=== PATIENT | female | born 1965 | race Caucasian/White ===

== ENCOUNTER 2024-07-20 05:41 | Inpatient (IN) | payer MEDICAID, SELFPAY ==
[2024-07-20] VITALS (143 sets, daily range): BP systolic 74–185; BP diastolic 46–92; PULSE 86–132; RESP 15–40; TEMP 36.2–37.1; O2SAT 60–100; BMI 19.5
--- NOTE | 2024-07-20 05:49 | XRR_ITS ---
PROCEDURE INFORMATION: Exam: XR Chest Exam date and time: 07/20/2024 6:22 AM Age: 59 years old Clinical indication: Shortness of breath; Patient HX: SOB with hypoxia. TECHNIQUE: Imaging protocol: Radiologic exam of the chest. Views: 1 view. COMPARISON: No relevant prior studies available. FINDINGS: Lungs: Perihilar infiltrate is noted on the left. Opacity is noted involving the right mid and lower lung field. Findings may reflect layering pleural fluid, atelectasis, pneumonia or a combination. Pleural spaces: Suspect component of pleural fluid on the right. No pneumothorax is appreciated. Heart/Mediastinum: Unremarkable. No cardiomegaly. Bones/joints: Unremarkable. XR/XR chest 1V portable [id number] IMPRESSION: 1. Perihilar infiltrate on the left. This could be related to pulmonary edema or could be inflammatory in origin. 2. Right perihilar and basilar opacity.
--- NOTE | 2024-07-20 05:53 | ED_ITS ---
HPI - SOB/Dyspnea 2 General: Chief Complaint: Shortness of Breath/Dyspnea Stated Complaint: Weakness,SOB Time Seen by Provider: 07/20/24 05:48 History of Present Illness: HPI Narrative: 59-year-old female presents emergency ro om via EMS complaining of shortness of breath. On arrival she is tachycardic and hypoxic. She was placed on 6 L by nasal cannula. She is awake and alert. She is quite anxious he complains of pain everywhere she does states she has vomited once has not had any diarrhea has had a minimally productive cough no chest pain. Associated symptoms: Reports abdominal pain, nausea and vomiting; Deny chest pain or fever(s) Related Data Home Medications Medication Instructions Recorded Confirmed aspirin 325 mg tablet 325 mg PO DAILY 07/20/24 07/20/24 multivitamin 1 tab PO DAILY 07/20/24 07/20/24 Allergies Allergy/AdvReac Type Severity Reaction Status Date / Time Sulfa (Sulfonamide Allergy ALGY-Rash Verified 07/20/24 05:48 Antibiotics) Review of Systems 2 Const: Denies: fever(s) or chills Card: Denies: chest pain Resp: Reports: dyspnea, productive cough and wheezing GI: Reports: abdominal pain, nausea and vomiting : Denies: dysuria, urinary frequency or urinary urgency Musc: Denies: neck pain or back pain Skin/Breast: Denies: rash PFSH ED 2 PFSH: Medical History Alopecia Family history of breast cancer mother Rheumatoid arthritis diagnosis as per available history Psoriasis diagnosis per available history Former smoker Surgical History (Updated 07/20/24 @ 14:32 by Angelina Dean MD) History of hysterectomy Family History (Updated 07/20/24 @ 14:33 by Angelina Dean MD) Mother Breast cancer Father Congestive heart failure (CHF) Sister Rheumatoid arthritis Social History (Updated 07/20/24 @ 14:34 by Angelina Dean MD) Smoking and tobacco/nicotine status: former use of tobacco/nicotine Quit status (tobacco/nicotine): has quit using Year quit tobacco: 2022 Alcohol intake: never Substance/Drug Use: never Household members: spouse and other Details: dog Marital status: Physical Exam 2 Const: GENERAL APPEARANCE: cooperative ORIENTATION/CONSCIOUSNESS: Yes awake, Yes oriented to person, Yes oriented to place and Yes oriented to time HENMT: COMMON NORMALS: normocephalic, atraumatic and hearing grossly normal bilaterally HEAD & SCALP: normocephalic and atraumatic Resp: COMMON NORMALS: normal respiratory effort, No retractions and No use of accessory muscles EFFORT & INSPECTION: Yes tachypneic AUSCULTATION: w heezes Cardio: COMMON NORMALS: No murmurs present (Cardio) RATE: tachycardic R HYTHM: abnormal rhythm irregularly irregular GI: COMMON NORMALS: No hepatosplenomegaly present AUSCULTATION: Yes normoactive bowel sounds PALPATION: Yes Tenderness to palpation present (GI), No Guarding due to palpation present (GI) and Yes No hepatosplenomegaly present Extremity: COMMON NORMALS: normal to inspection, capillary refill normal, no clubbing, cyanosis or edema, no calf tenderness and no pedal edema Neuro: SENSORIUM/ORIENTATION: Yes oriented to person, Yes oriented to place and Yes oriented to time Skin: COMMON NORMALS: no rashes or lesions noted GENERAL SKIN EXAM: no rashes or lesions noted Procedures Central Line Placement Right IJ: Patient Placed on Monitor/Pulse Ox: Yes MD Prep: mask, gown and gloves Central Line Prep: Chlorhexidine scrub Local Anesthetic: lidocaine 1% Amount of anesthesia used (mL): 3 Ultrasound Used for Placement: Yes Central Line Lumen Inserted: triple Post Procedure: sutured in place, good blood return, all ports aspirated, flushed, capped and sterile dressing applied Post Procedure X-Ray: tip of catheter in good position and no pneumothorax seen Patient Tolerated Procedure: well and no complications Complications: none Course 2 Vital Signs: Vital signs: Vital Signs Temperature 97.9 F 07/21/24 04:40 Pulse Rate 78 07/21/24 05:49 Respiratory Rate 20 H 07/21/24 05:45 Blood Pressure 107/72 07/21/24 05:45 Pulse Oximetry 98 07/21/24 05:40 Oxygen Delivery Me thod Nasal Cannula 07/20/24 18:16 Oxygen Flow Rate 5 07/20/24 18:16 MDM - SOB/Dyspnea Medical Decision Making Patient presents to the emergency room cachectic appears septic she is tachycardic and hypotensive and hypoxic. Despite fluid bolus patient did not improve. She is started on IV antibiotics for interval to manage IV is a difficult access ultimately a central line was placed Levophed was started. Chest x-ray shows significant pneumonia CTA requested shows significant lymphadenopathy but no PE use question of some narrowing of both bronchi noted when I reviewed the films myself. Patient has been started on IV antibiotics treat for sepsis will admit to ICU. Discussed with hospitalist orders written Lab Data I reviewed the patient's lab results. 07/21/24 04:54 07/21/24 04:54 Labs/Radiology: Radiology Impressions Chest CTA 07/20/24 06:38 IMPRESSION: 1. Consolidation of the entire right lower lobe with consolidation involving a large portion of the left lower lobe. Findings likely related to pneumonia. 2. Somewhat smaller nodular airspace opacities involving the upper lobes bilaterally. An inflammatory cause is favored. However, recommend follow-up to document resolution 3. Enlarged mediastinal and hilar lymph nodes. Again, findings are most likely reactive. Recommend follow-up to document resolution. Chest X-Ray 07/20/24 08:01 IMPRESSION: Properly positioned right internal jugular central line. Abnormalities in both hemithoraces as above. Chest CT is to follow. Laboratory Results WBC 17.23 10^3/uL (3.29-11.43) H 07/20/24 07:16 RBC 4.46 10^6/uL (3.85-5.65) 07/20/24 07:16 Hgb 12.50 g/dL (11.27-16.99) 07/20/24 07:16 Hct 36.6 % (36-47) 07/20/24 07:16 MCV 82.1 fl (85-98) L 07/20/24 07:16 MCH 28.0 pg (27-33) 07/20/24 07:16 MCHC 34.2 g/dL (30-55) 07/20/24 07:16 RDW 14.3 % (12.1-15.1) 07/20/24 07:16 Plt Count 412 10^3/cmm (157-399) H 07/20/24 07:16 MPV 10.3 fL (7.4-10.4) 07/20/24 07:16 Neut % (Auto) 95.6 % 07/20/24 07:16 Lymph % (Auto) 1.7 % 07/20/24 07:16 [place] % (Auto) 1.0 % 07/20/24 07:16 Eos % (Auto) 0.1 % 07/20/24 07:16 Baso % (Auto) 0.8 % 07/20/24 07:16 Neut # (Auto) 16.49 10^3/uL (1.8-7.7) H 07/20/24 07:16 Lymph # (Auto) 0.3 10^3/uL (0.8-4.8) L 07/20/24 07:16 [place] # (Auto) 0.2 10^3/uL (0.2-0.9) 07/20/24 07:16 Eos # (Auto) 0.0 10^3/uL (0.0-0.8) 07/20/24 07:16 Baso # (Auto) 0.1 10^3/uL (0.0-0.1) 07/20/24 07:16 Nucleated RBC % (auto) 0 % 07/20/24 07:16 Nucleated RBCs # 0.0 /100WBC 07/20/24 07:16 Specimen Type Arterial 07/20/24 05:52 Sample Site Radial, right 07/20/24 05:52 ABG pH 7.46 (7.35-7.45) H 07/20/24 05:52 ABG pCO2 35.1 mmHg (35-45) 07/20/24 05:52 ABG pO2 54.0 mmHg (80.0-100.0) L 07/20/24 05:52 ABG HCO3 24.9 mmol/L (22-26) 07/20/24 05:52 ABG O2 Saturation 89.3 07/20/24 05:52 ABG Base Excess 1.3 mmol/L (-2.0-2.0) 07/20/24 05:52 Michael Test Pos 07/20/24 05:52 A-a O2 Gradient 6.9 mmHg (5-10) 07/20/24 05:52 Hematocrit 40.3 % (37-47) 07/20/24 05:52 Hgb O2 Saturation 87.4 % (95-100) L 07/20/24 05:52 Carboxyhemoglobin 1.2 %THgb (0.4-20.1) 07/20/24 05:52 Methemoglobin 0.9 % (0.4-1.5) 07/20/24 05:52 Total Hemoglobin 13.2 g/dL (12-16) 07/20/24 05:52 Sodium 131.0 mmol/L (131-143) 07/20/24 05:52 Potassium 3.6 mmol/L (3.5-5.0) 07/20/24 05:52 Glucose 108.0 mg/dL (70-115) 07/20/24 05:52 Ionized Calcium 1.1 mmol/L (1.1-1.4) 07/20/24 05:52 O2 Delivery Device Nc 07/20/24 05:52 O2 Liters/Min 6.0 % 07/20/24 05:52 Line Dancer ID [email or web address] 07/20/24 05:52 Sodium 128 mmol/L (136-145) L 07/20/24 07:16 Potassium 3.8 mmol/L (3.5-5.1) 07/20/24 07:16 Chloride 92 mmol/L (98-107) L 07/20/24 07:16 Carbon Dioxide 24 mmol/L (22-29) 07/20/24 07:16 Anion Gap 15.8 (5-19) 07/20/24 07:16 BUN 43 mg/dL (6-20) H 07/20/24 07:16 Creatinine 0.8 mg/dL (0.5-0.9) 07/20/24 07:16 GFR Calculation 73.9 mL/min (90-130) L 07/20/24 07:16 Glucose 113 mg/dL (65-115) 07/20/24 07:16 Calculated Osmolality 278 mOsm/kg (285-295) L 07/20/24 07:16 Lactic Acid 2.9 mmol/L (0.5-2.2) H 07/20/24 07:16 Lactic Acid (Sepsis) 2.1 mmol/L (0.5-2.2) 07/20/24 09:55 Calcium 7.3 mg/dL (8.5-10.5) L 07/20/24 07:16 Magnesium 2.4 mg/dL (1.7-2.3) H 07/20/24 07:16 Total Bilirubin 1.0 mg/dL (0.15-1.2) 07/20/24 07:16 AST 66 U/L (0-32) H 07/20/24 07:16 ALT 26 U/L (0-33) 07/20/24 07:16 Alkaline Phosphatase 82 U/L (35-105) 07/20/24 07:16 Troponin T Baseline 8 ng/L (0-10) 07/20/24 07:16 Troponin T 120 Minute 6.00 ng/L (0-10) 07/20/24 09:55 Delta Troponin T -2.00 ABS# (0-10) L 07/20/24 09:55 Troponin T Hi Sens 6Hr 6.00 ng/L (0-10) 07/20/24 12:49 Troponin T Hi Sens 6Hr Delta -2.00 ng/L (0-12) L 07/20/24 12:49 NT-Pro-B Natriuret Pep 2712 pg/mL (0-125) H 07/20/24 07:16 Total Protein 4.7 g/dL (6.6-8.7) L 07/20/24 07:16 Albumin 2.2 g/dL (3.5-5.2) L 07/20/24 07:16 Globulin 2.5 g/dL (1.3-4.6) 07/20/24 07:16 All radiology interpretation(s) finalized by discharge Discharge Plan Discharge Patient Disposition: Admitted As Inpatient Admit Provider: Angelina Dean Clinical Impression: Community acquired pneumonia, Severe sepsis, Body mass index (BMI) less than or equal to 19 in adult, Severe protein-calorie malnutrition, Rheumatoid arthritis Condition: Stable Coding Level of Care Code ED Speech Lang Path for Adrienne Elizalde
[2024-07-20 06:03] LABS: ABG PCO2 35.1 mmHg (35-45); ABG PH Result 7.46 (7.35-7.45); Alveolar-Arterial Oxygen Gradi 6.9 mmHg (5-10); Arterial Blood Gas Hematocrit 40.3 % (37-47); Base Excess ABG 1.3 mmol/L (-2.0-2.0); Blood Gas Allen Test Pos; Blood Gas Sample Site Radial, right; Blood Gas Sample Type Arterial; Carboxyhemoglobin 1.2 %THgb (0.4-20.1); HCO3 ABG 24.9 mmol/L (22-26); HGB O2 Sat 87.4 % (95-100); Ionized Calcium Level - ABG 1.1 mmol/L (1.1-1.4); Methemoglobin 0.9 % (0.4-1.5); Oxygen Device NC; Oxygen Saturation ABG 89.3; Potassium Level - ABG 3.6 mmol/L (3.5-5.0); Total Hemoglobin 13.2 g/dL (12-16)
--- NOTE | 2024-07-20 06:13 | ECG_ITS ---
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 Measurements Intervals [place] Rate: 119 P: 18 HI: 150 QRS: 63 QRSD: 93 T: 57 QT: 276 QTc: 389 Interpretive Statements SINUS TACHYCARDIA WITH OCCASIONAL VENTRICULAR PREMATURE COMPLEXES ABNORMAL RHYTHM ECG No previous ECG available for comparison Electronically Signed On 07-21-2024 01:20:03 CDT by Michelle Falk M.D. [id number]
--- NOTE | 2024-07-20 06:38 | CTR_ITS ---
PROCEDURE INFORMATION: Exam: CTA Chest With Contrast Exam date and time: 07/20/2024 10:14 AM Age: 59 years old Clinical indication: Condition or disease; Lung condition and disease; Pleural effusion; Other: Not specified TECHNIQUE: Imaging protocol: Computed tomographic angiography of the chest with contrast. Exam focused on the arteries. 3D rendering (Not supervised by radiologist): MIP and/or 3D reconstructed images were created by the technologist. Radiation optimization: All CT scans at this facility use at least one of these dose optimization techniques: automated exposure control; mA and/or kV adjustment per patient size (includes targeted exams where dose is matched to clinical indication); or iterative reconstruction. Contrast material: OMNI 350; Contrast volume: 49 ml; Contrast route: INTRAVENOUS (IV); COMPARISON: CR XR chest 1V portable [id number] 07/20/2024 7:35 AM RADIATION DOSE METRICS: Total DLP (mGy-cm): 137.46 FINDINGS: Tubes, catheters and devices: There is a central venous catheter with its tip at the SVC/right atrial junction. Pulmonary arteries: Normal. No pulmonary emboli. Aorta: Unremarkable. No aortic aneurysm. No aortic dissection. Lungs: There is bilateral lower lobe consolidation worse on the right than on the left. Smaller somewhat nodular airspace opacities are noted involving the upper lobes bilaterally. Pleural spaces: Unremarkable. No pneumothorax. No pleural effusion. Heart: Unremarkable. No cardiomegaly. No pericardial effusion. Lymph nodes: There are enlarged mediastinal and hilar lymph nodes bilaterally. No enlarged axillary lymph nodes are appreciated. Bones/joints: Unremarkable. No acute fracture. Soft tissues: Unremarkable. CT/CT angio chest PE protcl [id number] IMPRESSION: 1. Consolidation of the entire right lower lobe with consolidation involving a large portion of the left lower lobe. Findings likely related to pneumonia. 2. Somewhat smaller nodular airspace opacities involving the upper lobes bilaterally. An inflammatory cause is favored. However, recommend follow-up to document resolution 3. Enlarged mediastinal and hilar lymph nodes. Again, findings are most likely reactive. Recommend follow-up to document resolution.
[2024-07-20 07:29] LABS: Basophils # 0.1 10^3/uL (0.0-0.1); Basophils % 0.8 %; Eosinophils % 0.1 %; Hematocrit 36.6 % (36-47); Lymphocytes # 0.3 10^3/uL (0.8-4.8); Lymphocytes % 1.7 %; Mean Corpuscular HGB Conc 34.2 g/dL (30-55); Mean Corpuscular Volume 82.1 fl (85-98); Mean Platelet Volume 10.3 fL (7.4-10.4); Monocytes # 0.2 10^3/uL (0.2-0.9); Neutrophils # 16.49 10^3/uL (1.8-7.7); Neutrophils % 95.6 %; Nucleated Red Blood Cells % 0 %; Platelet Count 412 10^3/cmm (157-399); Red Blood Count 4.46 10^6/uL (3.85-5.65); Red Cell Distribution Width 14.3 % (12.1-15.1); White Blood Count 17.23 10^3/uL (3.29-11.43)
[2024-07-20] MEDS: sodium chloride 0.9% 1,360.77 ML 1360.77 ML IV (07:37)
[2024-07-20] MEDS: methylPREDNISolone sod succ 125 mg/2 mL INJ IVP (07:37)
[2024-07-20 07:45] LABS: Lactic Sepsis W/Reflex 2.9 mmol/L (0.5-2.2)
[2024-07-20 07:47] LABS: Troponin(5th) Baseline 8 ng/L (0-10)
--- NOTE | 2024-07-20 07:52 | ECG_ITS ---
[facility] Test Date: 2024-07-20 Pat Name: Brittany Roy Department: Room: Gender: Female Headhunter: : 1965 Requested By: Dyllan Chaparro Order Number: [id number] Omkar MD: Michelle Falk M.D. Measurements Intervals [place] Rate: 118 P: 57 NM: 154 QRS: 63 QRSD: 87 T: 66 QT: 276 QTc: 388 Interpretive Statements SINUS TACHYCARDIA ABNORMAL RHYTHM ECG Compared to ECG 07/20/2024 06:13:57 Ventricular premature complex(es) no longer present Electronically Signed On 07-21-2024 01:27:12 CDT by Michelle Falk M.D. [email or web address]
[2024-07-20 07:55] LABS: Alanine Aminotransferase 26 U/L (0-33); Albumin Level 2.2 g/dL (3.5-5.2); Alkaline Phosphatase 82 U/L (35-105); Anion Gap 15.8 (5-19); Aspartate Amino Transferase 66 U/L (0-32); Blood Urea Nitrogen 43 mg/dL (6-20); Calcium 7.3 mg/dL (8.5-10.5); Carbon Dioxide 24 mmol/L (22-29); Chloride 92 mmol/L (98-107); Creatinine Clr Calc Pharmacy 55.6605; Globulin 2.5 g/dL (1.3-4.6); Glomerular Filtration Rate 73.9 mL/min (90-130); Glucose 113 mg/dL (65-115); Magnesium 2.4 mg/dL (1.7-2.3); NT Pro B Type Natriuretic Pept 2712 pg/mL (0-125); Osmolality Calculated 278 mOsm/kg (285-295); Potassium 3.8 mmol/L (3.5-5.1); Sodium 128 mmol/L (136-145); Total Protein 4.7 g/dL (6.6-8.7)
--- NOTE | 2024-07-20 08:01 | XR_ITS ---
WS: [id number] XR chest 1V portable [id number] REASON FOR EXAM: CENTRAL LINE PLACEMENT FINDINGS: Right internal jugular central venous line placement. The tip is in the distal SVC. The heart is not enlarged. Reticular interstitial and groundglass opacity in the left perihilar region and likely the right alex hilar region. Areas of atelectasis in both lower lung alvarez. Airspace consolidation in the right low er lung with air bronchograms. No change in these abnormalities compared to the examination of jane li AM. XR/XR chest 1V portable [id number] IMPRESSION: Properly positioned right internal jugular central line. Abnormalities in both hemithoraces as above. Chest CT is to follow.
[2024-07-20 08:48] LABS: Slide Review Slide Review Perform
[2024-07-20] MEDS: azithromycin 500 MG in sodium chloride 0.9% 250 ML 250 MG IV (08:49)
[2024-07-20] MEDS: cefTRIAXone 1,000 mg SDV 1000 MG IVP (08:57)
[2024-07-20 09:11] LABS: Reflex Lactate Order REFLEX LACTIC ORDERD
[2024-07-20] MEDS: ondansetron 2 mg/ML SDV 2 mL 4 MG IVP (09:24)
[2024-07-20] MEDS: iohexol 350 mg/mL 500 mL Btl (per mL) IV (10:19)
[2024-07-20 10:24] LABS: Lactic Acid level (Lactate) 2.1 mmol/L (0.5-2.2)
[2024-07-20] MEDS: norepinephrine 4 MG/250 ML BAG 7.5 MG IV (10:36)
[2024-07-20] MEDS: lanolin oint 7 gm 1 APPLIC TOPICAL (11:32)
--- NOTE | 2024-07-20 12:31 | P.HP_ITS ---
Providers/Chief Complaint 2 Admitting Physician: Angelina Dean MD Primary Care Provider: Between providers Chief Complaint: Weakness,SOB History of Present Illness Brittany Roy is a 59 year old female who presents to the emergency room with chief complaint of not feeling well. She has been sick for about a week. First thing she noted was a high fever up to around 102 degrees. She also felt weak and tired. She thought she was coming down with the plague . She said she felt terrible. She had headache, aching all over. Eyes have been crusting over and sore. No vision changes. No photophobia. No neck stiffness. She has been generally weak and not had much appetite. No nausea or vomiting. No change in bowel function. She has been trying to take an oral intake but has noted decreased urine output. Some dysuria. No blood in her stools or blood in her urine. No other signs of bleeding. She has been very short of breath. She has had runny nose but no sore throat, difficulty swallowing. No cough to speak of but at times is felt like she needed to cough. No hemoptysis. She has not been able to take care of herself. Today things seem to get worse prompting her to finally come in to be seen. She is in between doctors and has not seen a primary care provider recently. Most of her prior care has been at [facility]. She was hospitalized there earlier in the year and as well as around August last year. She reports a history of E. coli infections in the past associated with an infection in the bowels. She has had prior episodes of pneumonia but does not recall exactly when the last time was. No hospitalizations within the last few months. She carries a diagnosis of rheumatoid arthritis and psoriasis. She also has alopecia. She is not on any treatment for any of these currently by mouth, infusions or topically. She only takes aspirin and a multivitamin. She has lost some weight over the past year, 5 to 10 pounds. She is not up on her preventative care. She has a family history of breast cancer in her mother and heart failure in her father. She has had mammograms in the past with nothing being found. Does do self breast exams. Found a transient lump in her right axillary area that later went away. No known history of heart problems, lung disease, kidney disease. No known sick contacts. She has not had a flu shot this year. Has had a pneumonia shot within the last 5 years. In the emergency room she was found to have consolidation in both lungs, right more so than left as well as some enlarged lymph nodes. White count was 17,000. She had a left shift but also noted to have lymphopenia. She was tachycardic and hypotensive on arrival. Initial lactic acid 2.9. She received 30 cc/kg fluid bolus with persistent hypotension and was ultimately started on Levophed which is currently running at 2. Heart rate has improved as has blood pressure and most recent lactic acid was down to 2.1. She received Rocephin and azithromycin empirically. Blood cultures were collected. Notable laboratory findings include low sodium and chloride, elevated BUN, low MCV, elevated AST and hypoalbuminemia. BMI 19. She is being admitted to the ICU. History is obtained from Mrs. Roy and external records have been requested. Review of Systems 2 General: Reports: Other (ROS as per HPI or as otherwise noted here) Medications/Allergies Home Medications Medication Instructions Recorded Confirmed Last Taken Type aspirin 325 mg tablet 325 mg PO DAILY 07/20/24 07/20/24 Unknown History multivitamin 1 tab PO DAILY 07/20/24 07/20/24 Unknown History Allergies Allergy/AdvReac Type Severity Reaction Status Date / Time Sulfa (Sulfonamide Allergy ALGY-Rash Verified 07/20/24 05:48 Antibiotics) PFSH Acute 2 PFSH: Medical History Alopecia Family history of breast cancer mother Rheumatoid arthritis diagnosis as per available history Psoriasis diagnosis per available history Former smoker Surgical History (Updated 07/20/24 @ 14:32 by Angelina Dean MD) History of hysterectomy Family History (Updated 07/20/24 @ 14:33 by Angelina Dean MD) Mother Breast cancer Father Congestive heart failure (CHF) Sister Rheumatoid arthritis Social History (Updated 07/20/24 @ 14:34 by Angelina Dean MD) Smoking and tobacco/nicotine status: former use of tobacco/nicotine Quit status (tobacco/nicotine): has quit using Year quit tobacco: 2022 Alcohol intake: never Substance/Drug Use: never Household members: spouse and other Details: dog Marital status: Female Reproductive History: : 1 Para: 0 Vitals/I&O/Wt Last Vital Signs Temp 98.5 F 07/20/24 05:44 Pulse 100 07/20/24 10:50 Resp 31 H 07/20/24 10:50 BP 77/52 07/20/24 10:50 Pulse Ox 95 07/20/24 10:50 O2 Del Method Nasal Cannula 07/20/24 10:30 O2 Flow Rate 6 07/20/24 10:30 07/19/24 07/20/24 07/20/24 22:59 06:59 14:59 Intake Total 1613.645 / 1613.645 Balance 1613.645 / 1613.645 Weight last 48 hrs Weight 45.359 kg Physical Exam 2 Narrative: Patient is sleepy but arousable. Answers questions but slow to formulate responses. Overall thin build, looks older than stated age. Bitemporal wasting is noted. Alopecia noted involving the frontal region to mid parietal area. Thick curly black hair is growing in behind this. Skin where hair exists scalp is scaly. Loss of eyebrows is noted with the exception of some hair growing in on the left lateral eyebrow. There are some scaling plaques in the region of both eyebrows as well. Does have eyelashes. There is matting of both eyes with crusty brown material. Conjunctiva are erythematous. Pupils are equally reactive to light. No photophobia. Nasopharynx is clear. Oropharynx is very dry. Edentulous. Lips are dry. Neck is supple. Lungs are remarkable for decreased breath sounds bilaterally. Scattered crackles. Mild supraclavicular retractions noted. Pauses with talking frequently to take in a deep breath. Cardiovascular exam reveals a tachycardic but regular rhythm, heart sounds are slightly distant. Abdomen is soft, mild diffuse tenderness without any localizing. No guarding or rebound. Positive bowel sounds. No pitting edema noted to the lower extremities. Sausage digits noted to both hands. No effusions noted to elbows, hands, feet, knees. Overall skin is dry with some tenting noted. There are some erythematous patches on extensor surfaces but no scaly plaques. On the lower extremities there are sores in different stages of healing that look like bug bites. No mottling is appreciated. Capillary refill is prolonged. Speech is quiet but clear. Face is symmetric. Moves all extremities though generally weak. No abnormal movements. Quick SOFA Score: Respiratory Rate: 15 Blood Pressure: 88/58 Junior Coma Scale: 15 qSOFA Score: 1 If qSOFA score 2 or greater, continue: PaO2/FiO2 Ratio (mmHg): 200 Blood Pressure Mean: 68 Norepinephrine Current Rate (?g/kg/min): 2 Bilirubin (mg/dl): 1.0 Platelets (x10?/ml): 412 Creatinine (mg/dl): 0.8 SOFA Score: 6 Evaluation: Current stage of sepsis: severe sepsis Sepsis stage criteria used: [facility] Sep-1 and Sepsis-3 Crystalloid fluids: 30 mL/kg crystalloid fluids ordered and initiated within 3 hours Blood cultures ordered: Yes Possible source: pulmonary Focused Exam: Vital signs: Temp Pulse Resp BP Pulse Ox O2 Del Method O2 Flow Rate 07/20/24 13:00 93 23 H 79/53 07/20/24 12:50 93 24 H 91/67 96 07/20/24 12:40 93 24 H 93/61 07/20/24 12:30 96 28 H 89/57 95 07/20/24 12:20 92 26 H 90/58 07/20/24 12:10 93 27 H 95/65 07/20/24 12:00 96 27 H 87/60 96 07/20/24 11:50 94 26 H 92/59 07/20/24 11:40 98 27 H 93/59 94 07/20/24 11:30 95 28 H 81/65 96 07/20/24 11:20 92 28 H 88/60 07/20/24 11:10 97 35 H 84/55 07/20/24 11:00 95 31 H 79/51 95 07/20/24 10:50 100 31 H 77/52 95 07/20/24 10:40 107 H 30 H 74/46 96 07/20/24 10:35 107 H 33 H 90 07/20/24 10:30 106 H 15 75/47 95 Nasal Cannula 6 Respiratory exam: crackles present, diminished lung sounds and uses accessory muscles (supraclavicular retractions) Cardiovascular exam: regular rate and tachycardia Capillary refill: > 3 Seconds Peripheral pulse strength: 1+ Faint Peripheral pulse location: Pedal Skin exam: pallor noted and other (dry crusty eyes, dry oropharymnx); abnormal turgor (decreased), rashes/lesions noted (sores healing on legs, scalp with dry, scaly patches, red patches elbows) and no mottling Details: Original qsofa 2 and SOFA score 8 around 10am Date exam was performed: 07/20/24 Time exam was performed: 14:59 2 Respiratory Rate 25 breaths/min H (12 - 18) 07/20/24 15:10 Blood Pressure 91/58 mmHg 07/20/24 15:10 Junior Coma Scale Score 15 07/20/24 15:10 Quick SOFA Score 2 07/20/24 15:10 SOFA Score: 2 Junior Coma Scale Score 15 07/20/24 15:10 Blood Pressure Mean 69 mmHg 07/20/24 15:10 Norepinephrine Current Rate 2 07/20/24 13:38 Total Bilirubin 1.0 mg/dL (0.15-1.2) 07/20/24 07:16 Platelet Count 412 10^3/cmm (157-399) H 07/20/24 07:16 Creatinine 0.8 mg/dL (0.5-0.9) 07/20/24 07:16 SOFA Score 6 07/20/24 15:39 Data 07/20/24 07:16 07/20/24 07:16 Other Labs: Radiology Impressions Chest CTA 07/20/24 06:38 IMPRESSION: 1. Consolidation of the entire right lower lobe with consolidation involving a large portion of the left lower lobe. Findings likely related to pneumonia. 2. Somewhat smaller nodular airspace opacities involving the upper lobes bilaterally. An inflammatory cause is favored. However, recommend follow-up to document resolution 3. Enlarged mediastinal and hilar lymph nodes. Again, findings are most likely reactive. Recommend follow-up to document resolution. Chest X-Ray 07/20/24 08:01 IMPRESSION: Properly positioned right internal jugular central line. Abnormalities in both hemithoraces as above. Chest CT is to follow. Laboratory Results WBC 17.23 10^3/uL (3.29-11.43) H 07/20/24 07:16 RBC 4.46 10^6/uL (3.85-5.65) 07/20/24 07:16 Hgb 12.50 g/dL (11.27-16.99) 07/20/24 07:16 Hct 36.6 % (36-47) 07/20/24 07:16 MCV 82.1 fl (85-98) L 07/20/24 07:16 MCH 28.0 pg (27-33) 07/20/24 07:16 MCHC 34.2 g/dL (30-55) 07/20/24 07:16 RDW 14.3 % (12.1-15.1) 07/20/24 07:16 Plt Count 412 10^3/cmm (157-399) H 07/20/24 07:16 MPV 10.3 fL (7.4-10.4) 07/20/24 07:16 Neut % (Auto) 95.6 % 07/20/24 07:16 Lymph % (Auto) 1.7 % 07/20/24 07:16 [place] % (Auto) 1.0 % 07/20/24 07:16 Eos % (Auto) 0.1 % 07/20/24 07:16 Baso % (Auto) 0.8 % 07/20/24 07:16 Neut # (Auto) 16.49 10^3/uL (1.8-7.7) H 07/20/24 07:16 Lymph # (Auto) 0.3 10^3/uL (0.8-4.8) L 07/20/24 07:16 [place] # (Auto) 0.2 10^3/uL (0.2-0.9) 07/20/24 07:16 Eos # (Auto) 0.0 10^3/uL (0.0-0.8) 07/20/24 07:16 Baso # (Auto) 0.1 10^3/uL (0.0-0.1) 07/20/24 07:16 Nucleated RBC % (auto) 0 % 07/20/24 07:16 Nucleated RBCs # 0.0 /100WBC 07/20/24 07:16 Specimen Type Arterial 07/20/24 05:52 Sample Site Radial, right 07/20/24 05:52 ABG pH 7.46 (7.35-7.45) H 07/20/24 05:52 ABG pCO2 35.1 mmHg (35-45) 07/20/24 05:52 ABG pO2 54.0 mmHg (80.0-100.0) L 07/20/24 05:52 ABG HCO3 24.9 mmol/L (22-26) 07/20/24 05:52 ABG O2 Saturation 89.3 07/20/24 05:52 ABG Base Excess 1.3 mmol/L (-2.0-2.0) 07/20/24 05:52 Michael Test Pos 07/20/24 05:52 A-a O2 Gradient 6.9 mmHg (5-10) 07/20/24 05:52 Hematocrit 40.3 % (37-47) 07/20/24 05:52 Hgb O2 Saturation 87.4 % (95-100) L 07/20/24 05:52 Carboxyhemoglobin 1.2 %THgb (0.4-20.1) 07/20/24 05:52 Methemoglobin 0.9 % (0.4-1.5) 07/20/24 05:52 Total Hemoglobin 13.2 g/dL (12-16) 07/20/24 05:52 Sodium 131.0 mmol/L (131-143) 07/20/24 05:52 Potassium 3.6 mmol/L (3.5-5.0) 07/20/24 05:52 Glucose 108.0 mg/dL (70-115) 07/20/24 05:52 Ionized Calcium 1.1 mmol/L (1.1-1.4) 07/20/24 05:52 O2 Delivery Device Nc 07/20/24 05:52 O2 Liters/Min 6.0 % 07/20/24 05:52 Agency Director ID [email or web address] 07/20/24 05:52 Sodium 128 mmol/L (136-145) L 07/20/24 07:16 Potassium 3.8 mmol/L (3.5-5.1) 07/20/24 07:16 Chloride 92 mmol/L (98-107) L 07/20/24 07:16 Carbon Dioxide 24 mmol/L (22-29) 07/20/24 07:16 Anion Gap 15.8 (5-19) 07/20/24 07:16 BUN 43 mg/dL (6-20) H 07/20/24 07:16 Creatinine 0.8 mg/dL (0.5-0.9) 07/20/24 07:16 GFR Calculation 73.9 mL/min (90-130) L 07/20/24 07:16 Glucose 113 mg/dL (65-115) 07/20/24 07:16 Calculated Osmolality 278 mOsm/kg (285-295) L 07/20/24 07:16 Lactic Acid 2.9 mmol/L (0.5-2.2) H 07/20/24 07:16 Lactic Acid (Sepsis) 2.1 mmol/L (0.5-2.2) 07/20/24 09:55 Calcium 7.3 mg/dL (8.5-10.5) L 07/20/24 07:16 Magnesium 2.4 mg/dL (1.7-2.3) H 07/20/24 07:16 Total Bilirubin 1.0 mg/dL (0.15-1.2) 07/20/24 07:16 AST 66 U/L (0-32) H 07/20/24 07:16 ALT 26 U/L (0-33) 07/20/24 07:16 Alkaline Phosphatase 82 U/L (35-105) 07/20/24 07:16 Troponin T Baseline 8 ng/L (0-10) 07/20/24 07:16 Troponin T 120 Minute 6.00 ng/L (0-10) 07/20/24 09:55 Delta Troponin T -2.00 ABS# (0-10) L 07/20/24 09:55 NT-Pro-B Natriuret Pep 2712 pg/mL (0-125) H 07/20/24 07:16 Total Protein 4.7 g/dL (6.6-8.7) L 07/20/24 07:16 Albumin 2.2 g/dL (3.5-5.2) L 07/20/24 07:16 Globulin 2.5 g/dL (1.3-4.6) 07/20/24 07:16 Micro: Microbiology 07/20/24 07:52 Blood Culture - Preliminary Blood SPECIMEN COLLECTED 07/20/24 07:16 Blood Culture - Preliminary Blood SPECIMEN COLLECTED A&P Assessment and plan (1) Community acquired pneumonia: Organism currently unknown. Currently appears to have bacterial infection with severe sepsis but viral process also within differential. The patient is receiving antibiotics, including Rocephin and Azithromycin, alongside supportive measures such as oxygen and breathing treatments. She received steroids in the ER. (2) Severe sepsis: Based on history, clinical findings -both described above - and response to treatment. Initial sofa score 8 with improvement to 6 currently. Continues on fluids and pressors. Admitting to intensive care for severe sepsis management, including continued fluid resuscitation, norepinephrine infusion for hypotension, and follow up of blood cultures to inform antibiotic therapy. (3) Rheumatoid arthritis: Diagnosis as per patient history, not on any treatment now or in past year. Multiple sites, RF status unknown. With psoriasis and other examination findings, diagnosis in questions per my assessment and would benefit from re- evaluation in outpatient setting depending on clinical course. Suspect psoriatic athritis given dactylitis or other auto-immune/inflammatory process. Have requested records from [facility] where she has been before to see if we can determine where her rheumatology work up has been done in the past and what it entailed. She would like to establish rheumatological care here (4) Psoriasis: Diagnosis as per history. Has scaly plaques on scalp, eyebrows most notably. Red patches without active scales on extensor surfaces and a few places on trunk. Has sausage like digits both hands. Not on any focused treatment currently or within the last 6 to 12 months. Supportive symptom management as needed (5) Alopecia: Extensive alopecia, notable on scalp, face predominantly. Has hair regrowth. Unsure what kind of alopenia she has. Not on specific treatment, oral, topical or otherwise. Aware (6) Severe protein-calorie malnutrition: As evidenced by BMI 19, albumin of 2.2 with low total protein and clinical cachexia Consult nutrition (7) Body mass index (BMI) less than or equal to 19 in adult: With weight loss of 5-10 pounds last 6 months. Has always been small Check TSH Nutritional consultation as noted above Plan Likely with COPD based on smoking hisory though does not have a formal diagnosis of such Elevated BNP without clinical findings of CHF - check echo Low MCV with currently normal hemoglobin - concern for iron deficiency anemia, check TIBC Family history of breast cancer, not up-to-date on mammography - will need addressed by primary care once well from current infection Has not had flu shot this season, reports pneumonia vaccine within the last 5 years Currently without primary care provider ICU inpatient admission Plans as noted above VTE prophylaxis: subq heparin Antibiotics: Rocephin and azithromycin started on 07/20/23 Pending studies: blood cultures, covid/flu/rsv testing, bacterial antigens, MRSA swab, legionella, tsh & tibc with morning labs 07/21 Telemetry: ordered Calixto: not currently indicated Line(s): central line right IJ Disposition plan: Home with outpatient follow up. Needs PCP and would like to be referred to rheumatology here as well. May require oxygen at discharge depending on clinical course. Lives with . Code Status: Full Code Supportive care otherwise Findings, concerns and plans were discussed with patient and she was given an opportunity to ask questions Attestations 2 Medical Necessity Statement*: Anticipated stay greater than two midnights in this patient with pneumonia and severe sepsis as described above. Currently on pressors, getting IV antibiotics, IVFs and close monitoring in ICU setting. Coding Level of Care Code 18276 High Time for a total of 80 minutes, includes examining/interviewing patient, placing orders, counseling patient/family/other support, updating patient/family/other support, discussing plan of care with staff and documenting encounter Diagnoses Community acquired pneumonia J18.9 Severe sepsis A41.9; R65.20 Psoriasis L40.9 Body mass index (BMI) less than or equal to 19 in adult Z68.1 Rheumatoid arthritis M06.9 Alopecia L65.9 Severe protein-calorie malnutrition E43
--- NOTE | 2024-07-20 13:13 | ECG_ITS ---
[facility] Test Date: 2024-07-20 Pat Name: Brittany Roy Department: Room: Gender: Female Erp Business Analyst: : 1965 Requested By: Dyllan Chaparro Order Number: [id number] Omkar MD: Michelle Falk M.D. Measurements Intervals Outlook Rate: 88 P: 32 NE: 181 QRS: 65 QRSD: 87 T: 69 QT: 354 QTc: 428 Interpretive Statements SINUS RHYTHM WITH OCCASIONAL VENTRICULAR PREMATURE COMPLEXES Compared to ECG 07/20/2024 07:33:33 Ventricular premature complex(es) now present Sinus tachycardia no longer present Electronically Signed On 07-21-2024 01:35:01 CDT by Michelle Falk M.D. [id number]
[2024-07-20] MEDS: sodium chlor 0.9% + KCl 20 mEq 20 MEQ/1,000 ML BAG 100 MEQ IV (16:43)
[2024-07-20] MEDS: heparin 5,000 unit/mL INJ 1 mL 5000 UNIT SUBCUT (16:48)
[2024-07-20] MEDS: sodium chloride 0.9 % (flush) syringe 10 mL IV (16:55)
[2024-07-20 17:48] LABS: Bilirubin Urine 1+ (Negative); Blood Urine 3+ (Negative); Glucose Urine UA Negative (Normal); Ketones Urine Negative (Negative); Leukocyte Esterase Urine Negative (Negative); Nitrate Urine Negative (Negative); Protein Urine 2+ (Negative); Urine Appearance Clear (CLEAR); Urine Color Dark Yellow (Yellow)
[2024-07-20 17:53] LABS: Add Urine Microscopic? YES; Bacteria Urine None Seen /hpf; Hyaline Casts Urine 4.11 /lpf; Squamous Epithelial Cell Urine 0-5 /hpf (0-5); WBC Urine 0-5 /hpf (0-5)
[2024-07-20 17:59] LABS: Add Urine Culture? Yes; Specific Gravity, Urine 1.041 (1.005-1.030)
[2024-07-20 18:27] LABS: Covid PCR NEGATIVE (Negative); Influenza A NEGATIVE (Negative); Influenza B NEGATIVE (Negative); Respiratory Syncytial Virus Ce NEGATIVE (Negative)
--- NOTE | 2024-07-20 19:03 | PC.NURSE ---
Received patient from ER at approximately 1600. Patient is slightly lethargic, oriented to person, place, time, and situation. BP: 93/59 on 2mcg/min levophed, HR: 105, SPO2: 95% on 6L NC, RR: 24, Temp: 97.1. Patient voided shortly after arrival in ICU.
[2024-07-20 19:29] LABS: MRSA PCR OZH (swab) MRSA Detected (Not Detecte)
[2024-07-20] MEDS: acetaminophen 325 mg Tablet 650 MG PO (21:50)
[2024-07-20] MEDS: vancomycin 1,000 MG in sodium chloride 0.9% 250 ML 250 MG IV (23:21)
[2024-07-21] VITALS (232 sets, daily range): BP systolic 83–125; BP diastolic 54–83; PULSE 66–99; RESP 10–39; TEMP 36.6–37.2; O2SAT 87–100
[2024-07-21] MEDS: sodium chlor 0.9% + KCl 20 mEq 20 MEQ/1,000 ML BAG 100 MEQ IV (02:19)
[2024-07-21] MEDS: norepinephrine 4 MG/250 ML BAG 15 MG IV (04:16)
[2024-07-21] MEDS: heparin 5,000 unit/mL INJ 1 mL 5000 UNIT SUBCUT ×2 (04:55→16:39)
[2024-07-21] MEDS: sodium chloride 0.9 % (flush) syringe 10 mL IV (04:57)
--- NOTE | 2024-07-21 05:13 | PC.NURSE ---
At 2300 patient began having bigeminy on cardiac monitoring. Patient was asymptomatic, but persisted for more than [address] Baez contacted and made aware, no new orders at this time. Bigeminy consistently persisted for approximately one hour and has since been sinus rhythm for majority of shift.
[2024-07-21 05:23] LABS: Basophils # 0.1 10^3/uL (0.0-0.1); Basophils % 0.6 %; Hematocrit 34.3 % (36-47); Lymphocytes # 0.5 10^3/uL (0.8-4.8); Lymphocytes % 2.1 %; Mean Corpuscular HGB Conc 32.7 g/dL (30-55); Mean Corpuscular Hemoglobin 27.9 pg (27-33); Mean Corpuscular Volume 85.3 fl (85-98); Mean Platelet Volume 10.2 fL (7.4-10.4); Monocytes # 0.4 10^3/uL (0.2-0.9); Monocytes % 1.7 %; Neutrophils # 22.96 10^3/uL (1.8-7.7); Nucleated Red Blood Cells % 0 %; Platelet Count 424 10^3/cmm (157-399); Red Blood Count 4.02 10^6/uL (3.85-5.65); Red Cell Distribution Width 14.5 % (12.1-15.1); White Blood Count 24.43 10^3/uL (3.29-11.43)
[2024-07-21 05:41] LABS: INR 1.21 (0.8-1.2); Partial Thromboplastin Time 29.2 SECONDS (23.9-36.7)
[2024-07-21 05:43] LABS: Slide Review Slide Review Perform
[2024-07-21 05:49] LABS: Iron 11 ug/dL (37-145); Percent Saturation 11.4 % (20-50); Total Iron Binding Capacity 96 mcg/dl; Unsaturated Iron Binding 85 ug/dL (112-347)
[2024-07-21 05:58] LABS: Alanine Aminotransferase 20 U/L (0-33); Albumin Level 1.9 g/dL (3.5-5.2); Alkaline Phosphatase 198 U/L (35-105); Anion Gap 12.7 (5-19); Aspartate Amino Transferase 44 U/L (0-32); Blood Urea Nitrogen 41 mg/dL (6-20); Calcium 7.8 mg/dL (8.5-10.5); Carbon Dioxide 22 mmol/L (22-29); Chloride 107 mmol/L (98-107); Creatinine Clr Calc Pharmacy 55.7296; Globulin 3.1 g/dL (1.3-4.6); Glomerular Filtration Rate 73.9 mL/min (90-130); Glucose 144 mg/dL (65-115); Osmolality Calculated 297 mOsm/kg (285-295); Potassium 4.7 mmol/L (3.5-5.1); Sodium 137 mmol/L (136-145); Thyroid Stimulating Hormone 0.52 uIU/mL (0.27-4.20); Total Bilirubin 0.8 mg/dL (0.15-1.2)
--- NOTE | 2024-07-21 06:00 | USCV_ITS ---
Brittany Roy Age: 59 Gender: F : 1965 Exam Date: 07/21/2024 09:07 Ordering Phys: Angelina Dean MD Technologist: Exam Location: [facility] – [place] Indication: cp BP: 106 / 79 HR: 139 Rhythm: Sinus Technical Quality: Adequate MEASUREMENTS (Male / Female) Normal Values 2D ECHO LV Diastolic Diameter PLAX 4.0 cm 4.2 - 5.9 / 3.9 - 5.3 cm IVS Diastolic Thickness 0.9 cm 0.6 - 1.0 / 0.6 - 0.9 cm IVS Systolic Thickness 1.1 cm LVPW Diastolic Thickness 0.9 cm 0.6 - 1.0 / 0.6 - 0.9 cm LVPW Systolic Thickness 1.8 cm LVOT Diameter 1.7 cm LV Ejection Fraction 2D Teich 33.7 % LV Ejection Fraction MOD 4C 44.3 % LV Ejection Fraction MOD 2C 49.1 % LV Ejection Fraction 2C AL 50.5 % RA Systolic Volume 4C AL 30.1 ml RA Systolic Volume 4C MOD 29.1 ml M-MODE LA Ao Ratio MM 1.2 AV Cusp Separation MM 1.8 cm DOPPLER AV Peak Velocity 116.7 cm/s LVOT Peak Velocity 72.0 cm/s AV Area Cont Eq vti 1.4 cm squared AV Area Cont Eq pk 1.5 cm squared MV Peak Velocity 105.0 cm/s MV Area PHT 11.2 cm squared Mitral E to A Ratio 0.9 TV Peak Velocity 259.0 cm/s TR Peak Velocity 322.0 cm/s TR Peak Gradient 41.5 mmHg TV Peak E Velocity 92.0 cm/s Right Atrial Pressure 3.0 mmHg Pulmonary Artery Systolic Pressu 44.5 mmHg PV Peak Velocity 79.0 cm/s FINDINGS Left Ventricle Normal left ventricular size, systolic function and wall thickness, with no regional wall motion abnormalities. Left ventricular ejection fraction is estimated at 55 %. Grade I/IV diastolic dysfunction (abnormal relaxation filling pattern), normal to mildly elevated filling pressures. Right Ventricle The right ventricle is normal in size and function. Mild pulmonary hypertension. Right Atrium The right atrium is normal in size. Left Atrium The left atrium is normal in size. Mitral Valve Thickened mitral valve. No mitral valve stenosis. Mild-moderate mitral valve regurgitation. Aortic Valve Mild aortic valve calcification. No aortic valve stenosis. Trace aortic valve regurgitation. Tricuspid Valve Structurally normal tricuspid valve without significant stenosis, trace regurgitation. Pulmonary artery systolic pressure is normal. Pulmonic Valve Structurally normal pulmonic valve without significant stenosis. There is no pulmonic regurgitation. Pericardium Normal pericardium without effusion. Aorta Normal ascending aorta dimension. IVC The inferior vena cava appears normal. CONCLUSIONS Normal left ventricular size, systolic function and wall thickness, with no regional wall motion abnormalities. Left ventricular ejection fraction is estimated at 55 %. Grade I/IV diastolic dysfunction (abnormal relaxation filling pattern), normal to mildly elevated filling pressures. The right ventricle is normal in size and function. Mild pulmonary hypertension. Thickened mitral valve. No mitral valve stenosis. Mild-moderate mitral valve regurgitation. Mild aortic valve calcification. No aortic valve stenosis. Trace aortic valve regurgitation. There is no pericardial effusion. Right atrial pressure is around 5 mm of mercury. Micah Cason MD (Electronically Signed) Final Date: 21 July 2024 13:41 S
[2024-07-21] MEDS: azithromycin 500 MG in sodium chloride 0.9% 250 ML 250 MG IV (08:05)
[2024-07-21] MEDS: cefTRIAXone 1,000 mg SDV 1000 MG IVP (08:06)
[2024-07-21] MEDS: multivitamin therapeutic Tablet 1 TAB PO (08:06)
[2024-07-21] MEDS: iron sucrose 200 MG in sodium chloride 0.9% (100 ml) 100 ML 220 MG IV (08:19)
[2024-07-21] MEDS: ondansetron 2 mg/ML SDV 2 mL 4 MG IVP (08:29)
[2024-07-21 08:38] LABS: HIV 1 & 2 Antibody Non-Reactive (Non-Reactiv); HIV 1 & 2 Antigen Non-Reactive (Non-Reactiv)
[2024-07-21 08:45] LABS: Cortisol Random 18.19 ug/dL (2.47-19.5)
--- NOTE | 2024-07-21 09:19 | P.PN_ITS ---
Documented by User: STARLA Palomraes [email or web address] 07/21/24 10:37 Subjective 2 Subjective: Patient is a very weak and frail elderly lady with soft voice. Able to answer questions. Decreased O2 to 4L while in the room and patient appears to have tolerated it for the time being. Patient endorses nausea, will evaluate for causes and treat. Will discuss patient with nutrition, suspect protein malnutrition secondary to low albumin and total protein. Vitals/I&O/Wt Last Vital Signs Temp 98.2 F 07/21/24 06:00 Pulse 67 07/21/24 08:27 Resp 18 07/21/24 08:27 BP 110/79 07/21/24 07:00 Pulse Ox 93 07/21/24 08:27 O2 Del Method Nasal Cannula 07/21/24 08:27 O2 Flow Rate 4 07/21/24 08:27 07/20/24 07/21/24 07/21/24 22:59 06:59 14:59 Intake Total 240 / 6819.404 8301.125 / 3180.770 610 / 610 Output Total 350 / 350 100 / 450 Balance -110 / 3423.557 4132.125 / 2730.770 610 / 610 Weight last 48 hrs Weight 100 lb 4.965 oz Weight 94 lb 12.78 oz Weight 100 lb Data 07/21/24 04:54 07/21/24 04:54 Micro: Microbiology 07/20/24 17:30 Bacterial Antigens - Final Urine,Clean Catch 07/20/24 07:52 Blood Culture - Preliminary Blood NEGATIVE TO DATE 07/20/24 07:16 Blood Culture - Preliminary Blood 07/20/24 17:30 Legionella Urinary Antigen - Final Urine,Clean Catch A&P Assessment and plan (1) Community acquired pneumonia: Patient with sepsis secondary to pneumonia CXR showed perihilar interstitial and ground glass opacities with R. lower lobe consolidation. CTA showed consolidation with opacities and the presence of mediastinal and hilar nodes, likely reactive Received steriods in ER Sputum cultures will be obtained Continue Rocephin and Azithromycin Continue O2, wean as tolerated continue DuoNebs PRN (2) Severe sepsis: Patient with sepsis secondary to pneumonia. Labs showed WBCs 17, lactic acid 2.9, BNP 2712 ECG showed sinus tachycardia with PVC, series now shows sinus rhythm with occasional PVCs Continue NS fluids IV Continue Levophed at 4mg secondary to low BPs Blood and urine cultures are pending Bacterial Ag testing was negative for Group B strep, Step pneumonia, Legionella, H. influenzae, N. meningitidis MRSA PCR was positive, added vanc 750mg IV q12 Mg was 2.4, Na has increased to 137 CBC and CMP with Mg tomorrow (3) Severe protein-calorie malnutrition: Patient appears to be cachexic and frail with current BMI of 19.6, albumin of 2.2, low total protein Patient has had weight loss of 5-10lbs in last 6 months, reported to always be small Her albumin was decreased today to 1.9 Will consult nutrition Since patient additionally had evidence of sepsis, ordered HIV Ag and Ab testing, this was non-reactive Ordered cortisol and TSH secondary to low sodium and low BMI upon admission, cortisol was normal, TSH was normal Continue multi-vitamin, regular diet as tolerated, (4) Rheumatoid arthritis: As per history, records from [facility] have been requested Establish rheumatological care outpatient (5) Psoriasis: As per history, supportive symptom management PRN Plan Patient has alopecia noted on exam, not currently on any medications related to treatment Echo was ordered secondary to elevated BNP, waiting on results Iron deficiency: Low MCV, low iron, normal TIBC, low % sat; gave Venofer 200mg IV Nausea: patient starting having nausea today, started Protonix BID and Reglan IV Full code On heparin for DVT PPX Coding Level of Care Code Critical Care >/= 30 minutes Diagnoses Community acquired pneumonia J18.9 Severe sepsis A41.9; R65.20 Severe protein-calorie malnutrition E43 Rheumatoid arthritis M06.9 Psoriasis L40.9 Documented by User: Jorge Macario MD 07/21/24 10:37 Subjective 2 Subjective: Patient is a very weak and frail elderly lady with soft voice. Able to answer questions. Decreased O2 to 4L while in the room and patient appears to have tolerated it for the time being. Patient endorses nausea, will evaluate for causes and treat. Will discuss patient with nutrition, suspect protein malnutrition secondary to low albumin and total protein. History and physical was reviewed. Patient is here for extensive pneumonia, sepsis, and hypotension. She reports she feels better than yesterday. She is overall less short of breath. Medications: Reviewed: Yes Physical Exam 2 Narrative: General Exam is a white female, on 5 L of oxygen, with a saturation of around 95%. Neck is supple Cardiovascular regular rate and rhythm, no murmur Lungs diminished breath sounds bilaterally. Diminished breath sounds on the right. No wheezing. Abdomen is soft nontender, no obvious organomegaly exam deferred Extremities no cyanosis clubbing or edema, cap refill brisk Data 07/21/24 04:54 07/21/24 04:54 A&P Assessment and plan (1) Community acquired pneumonia: Patient with sepsis secondary to pneumonia CXR showed perihilar interstitial and ground glass opacities with R. lower lobe consolidation. CTA showed consolidation with opacities and the presence of mediastinal and hilar nodes, likely reactive Received steriods in ER Sputum cultures will be obtained Continue Rocephin and Azithromycin Vancomycin added secondary to a positive MRSA PCR screen Continue O2, wean as tolerated continue DuoNebs PRN (2) Severe sepsis: Patient with sepsis secondary to pneumonia. Labs showed WBCs 17, lactic acid 2.9, BNP 2712 ECG showed sinus tachycardia with PVC, series now shows sinus rhythm with occasional PVCs Continue NS fluids IV. Reduce rate slightly Continue Levophed at 4mg secondary to low BPs. Wean as tolerated Blood and urine cultures are pending Bacterial Ag testing was negative for Group B strep, Step pneumonia, Legionella, H. influenzae, N. meningitidis MRSA PCR was positive, added vanc 750mg IV q12 Mg was 2.4, Na has increased to 137 CBC and CMP with Mg tomorrow (3) Severe protein-calorie malnutrition: Patient appears to be cachexic and frail with current BMI of 19.6, albumin of 2.2, low total protein Patient has had weight loss of 5-10lbs in last 6 months, reported to always be small Her albumin was decreased today to 1.9 Will consult nutrition Since patient additionally had evidence of sepsis, ordered HIV Ag and Ab testing, this was non-reactive Ordered cortisol and TSH secondary to low sodium and low BMI upon admission, cortisol was normal, TSH was normal Continue multi-vitamin, regular diet as tolerated, Encourage nutritional supplement (4) Rheumatoid arthritis: (5) Psoriasis: Plan Patient has alopecia noted on exam, not currently on any medications related to treatment Echo was ordered secondary to elevated BNP, waiting on results Iron deficiency: Low MCV, low iron, normal TIBC, low % sat; gave Venofer 200mg IV Nausea: patient starting having nausea today, started Protonix BID and Reglan IV in addition to Zofran that was already ordered Full code On heparin for DVT PPX Still has significant risk for deterioration with extensive pneumonia still requiring norepinephrine in this patient with hypotension and sepsis. Attestations 2 Medical Necessity Statement*: Needs continued hospitalization for IV antibiotics secondary to extensive pneumonia, with hypoxia. Still hypotensive requiring norepinephrine. Critical Care Time: The high probability of a clinically significant, sudden or life threatening deterioration of the patient's [pulmonary, vascular, autoimmune] system(s) required my full and direct attention, intervention and personal management. The critical care time is as shown. This time is in addition to time spent performing any reported procedures but includes the following: [x] Data and vital sign review and interpretation [x] Patient assessment, examination and intervention [x] Documentation [x] Medication orders and management Critical Care Time (min): 31 Coding Level of Care Code Critical Care >/= 30 minutes Critical care time (in minutes): 31 The high probability of a clinically significant, sudden or life threatening deterioration, as referenced in this documentation, required my full and direct attention, intervention and personal management. The critical care time shown is in addition to time spent performing any reported separately billable procedures and includes the following: [x] Data and vital sign review and interpretation [x ] Patient assessment, examination and intervention [x] Medication orders and management [x] Patient/Family updates as able [x] Care Coordination and Documentation. Diagnoses Community acquired pneumonia J18.9 Severe sepsis A41.9; R65.20 Severe protein-calorie malnutrition E43 Rheumatoid arthritis M06.9 Psoriasis L40.9
[2024-07-21] MEDS: pantoprazole 40 mg SDV IVP ×2 (09:45→22:30)
[2024-07-21] MEDS: metoclopramide 5 mg/mL SDV 2 mL 10 MG IVP (10:22)
[2024-07-21] MEDS: vancomycin 750 MG in sodium chloride 0.9% 250 ML 250 MG IV ×2 (10:24→22:31)
[2024-07-21] MEDS: guaiFENesin 600 mg Tablet PO ×2 (11:11→16:40)
[2024-07-21] MEDS: sodium chlor 0.9% + KCl 20 mEq 20 MEQ/1,000 ML BAG 75 MEQ IV (13:46)
[2024-07-21] MEDS: ipratropium-albuterol 3 mL Neb INHALATION ×2 (13:49→20:18)
--- NOTE | 2024-07-21 14:09 | PHA.VACGOAL ---
Vancomycin Goal - Goal Vancomycin Goal:: 15-20 mg/L Vancomycin Indication:: Pneumonia - Therapy Current therapy:: Azithromycin Day of therpy:: Day []of [] . Actual body weight (kg): 100 lb 4.965 oz - Data Labs: WBC 24.43 10^3/uL (3.29-11.43) H 07/21/24 04:54 RBC 4.02 10^6/uL (3.85-5.65) 07/21/24 04:54 Hgb 11.20 g/dL (11.27-16.99) L 07/21/24 04:54 Hct 34.3 % (36-47) L 07/21/24 04:54 MCV 85.3 fl (85-98) 07/21/24 04:54 MCH 27.9 pg (27-33) 07/21/24 04:54 MCHC 32.7 g/dL (30-55) 07/21/24 04:54 RDW 14.5 % (12.1-15.1) 07/21/24 04:54 Sodium 137 mmol/L (136-145) 07/21/24 04:54 Potassium 4.7 mmol/L (3.5-5.1) 07/21/24 04:54 Chloride 107 mmol/L (98-107) 07/21/24 04:54 Carbon Dioxide 22 mmol/L (22-29) 07/21/24 04:54 Anion Gap 12.7 (5-19) 07/21/24 04:54 BUN 41 mg/dL (6-20) H 07/21/24 04:54 Creatinine 0.8 mg/dL (0.5-0.9) 07/21/24 04:54 GFR Calculation 73.9 mL/min (90-130) L 07/21/24 04:54 Treatment plan:: new consult Regimen:: PER TELEPHARMACY HANDOFF SRINI Roy [id number] 07/20/24 11:08 PM Kinetics Pharmacy to Dose: Vancomycin Comments: 1g loading dose entered to start @2300 - please f/u AM labs to adjust maintenance dose regimen and schedule 1st trough Serum Creatinine: 0.8 CrCL: 55.66 Indication: CAP Dose (mg): 750mg Frequency: q12h Height (cm): 152.4cm Weight (kg): 43kg Age (Years): 59 Did you include on daily report?: Yes First Dose Time and Date: 07/21 @1100
[2024-07-21] MEDS: acetaminophen 325 mg Tablet 650 MG PO (22:30)
[2024-07-21] MEDS: ALPRAZolam 0.5 mg Tablet PO (22:52)
[2024-07-22] VITALS (210 sets, daily range): BP systolic 90–136; BP diastolic 55–81; PULSE 59–125; RESP 14–39; TEMP 36.4–37.7; O2SAT 76–100
[2024-07-22] MEDS: sodium chlor 0.9% + KCl 20 mEq 20 MEQ/1,000 ML BAG 75 MEQ IV (02:49)
[2024-07-22] MEDS: heparin 5,000 unit/mL INJ 1 mL 5000 UNIT SUBCUT ×2 (05:40→17:25)
[2024-07-22] MEDS: sodium chloride 0.9 % (flush) syringe 10 mL IV (05:43)
[2024-07-22 05:51] LABS: Basophils # 0.1 10^3/uL (0.0-0.1); Basophils % 0.5 %; Hematocrit 30.7 % (36-47); Lymphocytes # 0.6 10^3/uL (0.8-4.8); Lymphocytes % 3.8 %; Mean Corpuscular HGB Conc 32.2 g/dL (30-55); Mean Corpuscular Hemoglobin 28.4 pg (27-33); Mean Platelet Volume 10.3 fL (7.4-10.4); Monocytes # 0.3 10^3/uL (0.2-0.9); Neutrophils # 14.81 10^3/uL (1.8-7.7); Neutrophils % 90.2 %; Nucleated Red Blood Cells % 0 %; Platelet Count 369 10^3/cmm (157-399); Red Blood Count 3.49 10^6/uL (3.85-5.65); Red Cell Distribution Width 15.3 % (12.1-15.1); White Blood Count 16.44 10^3/uL (3.29-11.43)
[2024-07-22 06:25] LABS: Alanine Aminotransferase 15 U/L (0-33); Albumin Level 1.9 g/dL (3.5-5.2); Alkaline Phosphatase 263 U/L (35-105); Anion Gap 13.2 (5-19); Aspartate Amino Transferase 35 U/L (0-32); Blood Urea Nitrogen 38 mg/dL (6-20); Calcium 8.2 mg/dL (8.5-10.5); Carbon Dioxide 21 mmol/L (22-29); Chloride 114 mmol/L (98-107); Creatinine Clr Calc Pharmacy 73.4439; Glucose 112 mg/dL (65-115); Magnesium 2.2 mg/dL (1.7-2.3); Osmolality Calculated 306 mOsm/kg (285-295); Potassium 5.2 mmol/L (3.5-5.1); Sodium 143 mmol/L (136-145); Total Bilirubin 0.4 mg/dL (0.15-1.2); Total Protein 4.9 g/dL (6.6-8.7)
[2024-07-22] MEDS: ipratropium-albuterol 3 mL Neb INHALATION ×3 (08:15→19:57)
[2024-07-22] MEDS: cefTRIAXone 1,000 mg SDV 1000 MG IVP (08:24)
[2024-07-22] MEDS: pantoprazole 40 mg SDV IVP ×2 (08:24→21:19)
[2024-07-22] MEDS: multivitamin therapeutic Tablet 1 TAB PO (08:24)
[2024-07-22] MEDS: guaiFENesin 600 mg Tablet PO ×2 (08:24→17:25)
[2024-07-22] MEDS: azithromycin 500 MG in sodium chloride 0.9% 250 ML 250 MG IV (08:24)
--- NOTE | 2024-07-22 08:38 | P.PN_ITS ---
Documented by User: STARLA Palomares [email or web address] 07/22/24 10:09 Subjective 2 Subjective: Patient is still very weak and frail with productive cough. Patient has been able to consume Ensure, but still struggles with lack of appetite. Remains on nasal cannula at 3L, but doing well enough with respiratory function that may be able to decrease. Received Xanax last night to help calm down and aid with sleep. Patient denies SOB, Chest pain, abdominal pain, fevers, or chills. Plan to transfer [facility]. Vitals/I&O/Wt Last Vital Signs Temp 97.6 F 07/22/24 06:00 Pulse 70 07/22/24 08:27 Resp 18 07/22/24 08:15 BP 106/58 07/22/24 06:20 Pulse Ox 98 07/22/24 08:15 O2 Del Method Nasal Cannula 07/22/24 08:15 O2 Flow Rate 3 07/22/24 08:15 07/21/24 07/22/24 07/22/24 22:59 06:59 14:59 Intake Total 1200 / 3260 1348.75 / 4608.75 250 / 250 Balance 1200 / 2760 1348.75 / 4108.75 250 / 250 Weight last 48 hrs Weight 97 lb 6.4 oz Weight 100 lb 4.965 oz Weight 94 lb 12.78 oz Physical Exam 2 Narrative: Very small and frail white female with generalized weakness and soft voice. Neck/C-Spine: OTHER: Supple Resp: OTHER: Bilateral breath sounds, slight expiration wheeze, normal chest wall expansion Cardio: OTHER: Normal rate and rhythm without murmurs, gallops, or rubs GI: OTHER: Soft, nondistended, nontender with bowel sounds Extremity: OTHER: No edema or cyanosis Data 07/22/24 04:15 07/22/24 04:15 Micro: Microbiology 07/22/24 04:15 Blood Culture - Preliminary Blood SPECIMEN COLLECTED 07/22/24 05:40 Blood Culture - Preliminary Blood SPECIMEN COLLECTED 07/20/24 07:16 Blood Culture - Preliminary Blood Streptococcus pneumoniae 07/20/24 17:30 Bacterial Antigens - Final Urine,Clean Catch 07/20/24 07:52 Blood Culture - Preliminary Blood NEGATIVE TO DATE A&P Assessment and plan (1) Community acquired pneumonia: Patient with sepsis secondary to pneumonia Received steriods in ER Sputum cultures will be obtained Blood cultures positive for strep pneumoniae Continue Rocephin and Azithromycin, will stop Azithromycin tomorrow due to pneumonia likely from Strep. Pneumoniae Continue O2, wean as tolerated continue DuoNebs PRN (2) Severe sepsis: Patient with sepsis secondary to pneumonia. Labs showed WBCs still elevated at 16, RBCs decreased to 3.49, Hgb decreased to 9.9 Potassium levels was high at 5.2, stop IV fluids, can tolerate po fluids instead Levophed was stopped yesterday and has not been restarted, BP been stable Blood culture was positive for strep pneumoniae Urine culture still pending MRSA PCR was positive, continue vanc 750mg IV q12 Continue Rocephin and Azithromycin, will stop Azithromycin tomorrow due to pneumonia likely from Strep. Pneumoniae Mg was 2.2, Na has increased to 143 CBC and CMP with Mg tomorrow, recheck potassium tomorrow (3) Severe protein-calorie malnutrition: Patient appears to be cachexic and frail with current BMI of 19.0 Patient has had weight loss of 5-10lbs in last 6 months, reported to always be small Her albumin was has stayed the same today at 1.9 Will consult nutrition, patient has been able to tolerate Ensure, but still reports decreased appetite Continue multi-vitamin, regular diet as tolerated (4) Rheumatoid arthritis: As per history, records from [facility] have been requested Establish rheumatological care outpatient (5) Psoriasis: As per history, supportive symptom management PRN Plan Patient has alopecia noted on exam, not currently on any medications related to treatment Echo was ordered secondary to elevated BNP, EF was 55% with 1/4 diastolic dysfunction with mild-moderate mitral regurg and trace aortic regurg Iron deficiency: Gave Venofer 200mg IV yesterday, recheck as outpatient Nausea: Continue Protonix BID and Reglan IV PRN for nausea Full code On heparin for DVT PPX Protonix for GI PPX Coding Level of Care Code 35427 Diagnoses Community acquired pneumonia J18.9 Severe sepsis A41.9; R65.20 Severe protein-calorie malnutrition E43 Rheumatoid arthritis M06.9 Psoriasis L40.9 Time Spent (min) 26 Documented by User: Jorge Macario MD 07/22/24 10:14 Subjective 2 Medications: Reviewed: Yes Data 07/22/24 04:15 07/22/24 04:15 A&P Assessment and plan (1) Community acquired pneumonia: (2) Severe sepsis: Patient with sepsis secondary to pneumonia. Labs showed WBCs still elevated at 16, RBCs decreased to 3.49, Hgb decreased to 9.9 Potassium levels was high at 5.2, stop IV fluids as these have potassium in them, can tolerate po fluids instead Levophed was stopped yesterday and has not been restarted, BP been stable Blood culture was positive for strep pneumoniae Urine culture still pending MRSA PCR was positive, continue vanc 750mg IV q12 Continue Rocephin and Azithromycin, will stop Azithromycin tomorrow due to pneumonia likely from Strep. Pneumoniae Mg was 2.2, Na has increased to 143 CBC and CMP with Mg tomorrow, recheck potassium tomorrow (3) Severe protein-calorie malnutrition: (4) Rheumatoid arthritis: (5) Psoriasis: Plan Patient has alopecia noted on exam, not currently on any medications related to treatment Echo was ordered secondary to elevated BNP, EF was 55% with 1/4 diastolic dysfunction with mild-moderate mitral regurg and trace aortic regurg Iron deficiency: Gave Venofer 200mg IV yesterday, recheck as outpatient. Repeat dose today Nausea: Continue Protonix BID and Reglan IV PRN for nausea Full code On heparin for DVT PPX Protonix for GI PPX Attestations 2 Medical Necessity Statement*: Needs continued hospitalization for IV antibiotics secondary bacteremia with strep pneumonia as well as extensive pneumonia. Diagnoses Community acquired pneumonia J18.9 Severe sepsis A41.9; R65.20 Severe protein-calorie malnutrition E43 Rheumatoid arthritis M06.9 Psoriasis L40.9 Time Spent (min) 26
[2024-07-22] MEDS: ondansetron 2 mg/ML SDV 2 mL 4 MG IVP (08:58)
[2024-07-22] MEDS: metoclopramide 5 mg/mL SDV 2 mL 10 MG IVP ×2 (09:46→14:46)
[2024-07-22] MEDS: vancomycin 750 MG in sodium chloride 0.9% 250 ML 250 MG IV ×2 (09:46→23:24)
[2024-07-22] MEDS: iron sucrose 200 MG in sodium chloride 0.9% (100 ml) 100 ML 220 MG IV (10:42)
[2024-07-22] MEDS: ALPRAZolam 0.5 mg Tablet PO (14:52)
[2024-07-22] MEDS: diazePAM 2 mg Tablet PO (21:19)
[2024-07-22 22:51] LABS: Vancomycin Trough 6.2 ug/mL (10-15)
[2024-07-23] VITALS (48 sets, daily range): BP systolic 93–132; BP diastolic 48–109; PULSE 69–123; RESP 16–39; TEMP 36.5–38.8; O2SAT 86–99; BMI 20.2
--- NOTE | 2024-07-23 00:02 | XRR_ITS ---
PROCEDURE INFORMATION: Exam: XR Chest Exam date and time: 07/23/2024 12:19 AM Age: 59 years old Clinical indication: Shortness of breath and wheezing; Additional info: Resp fail, pna TECHNIQUE: Imaging protocol: Radiologic exam of the chest. Views: 1 view. COMPARISON: CT angio chest PE protcl [id number] 07/20/2024 10:14 AM FINDINGS: Tubes, catheters and devices: Right internal jugular central line tip is in the right atrium. Lungs: Bilateral lower lobe consolidation/collapse. Pleural spaces: There are bilateral pleural effusions. Heart/Mediastinum: Mild cardiomegaly. Bones/joints: Mild curvature of the thoracic spine convex to the right. XR/XR chest 1V portable [id number] IMPRESSION: Bilateral pleural effusions with bilateral lower lobe consolidation/collapse.
[2024-07-23] MEDS: dexamethasone 10 mg/mL INJ IVP (00:36)
--- NOTE | 2024-07-23 01:51 | US_ITS ---
WS: [id number] Ultrasound chest, limited. HISTORY: Evaluate for for fluid or mass. Ultrasound is directed to the LEFT chest. Spleen is slightly high riding. There is a very small amoun t of pleural fluid. There is a large area of consolidation in the LEFT lung surrounded by a small jia unt of fluid. This consolidation is moving in and out of the fluid during respiration. No significant fluid noted on the RIGHT. US/US chest [id number] IMPRESSION: Very small LEFT pleural effusion. There is a large area of consolidation within the pleural effusion.
[2024-07-23] MEDS: acetaminophen 325 mg Tablet 650 MG PO (02:25)
[2024-07-23] MEDS: ipratropium-albuterol 3 mL Neb INHALATION ×4 (02:33→21:28)
[2024-07-23 03:40] LABS: Basophils # 0.1 10^3/uL (0.0-0.1); Basophils % 0.4 %; Eosinophils % 0.1 %; Hematocrit 30.8 % (36-47); Lymphocytes # 0.4 10^3/uL (0.8-4.8); Lymphocytes % 2.5 %; Mean Corpuscular HGB Conc 32.5 g/dL (30-55); Mean Corpuscular Hemoglobin 28.5 pg (27-33); Mean Corpuscular Volume 87.7 fl (85-98); Mean Platelet Volume 9.9 fL (7.4-10.4); Monocytes # 0.3 10^3/uL (0.2-0.9); Monocytes % 1.5 %; Neutrophils # 15.46 10^3/uL (1.8-7.7); Neutrophils % 90.5 %; Nucleated Red Blood Cells % 0 %; Platelet Count 365 10^3/cmm (157-399); Red Blood Count 3.51 10^6/uL (3.85-5.65); Red Cell Distribution Width 15.2 % (12.1-15.1); White Blood Count 17.07 10^3/uL (3.29-11.43)
[2024-07-23 03:57] LABS: Alanine Aminotransferase 16 U/L (0-33); Alkaline Phosphatase 140 U/L (35-105); Anion Gap 12.3 (5-19); Aspartate Amino Transferase 33 U/L (0-32); Blood Urea Nitrogen 23 mg/dL (6-20); Carbon Dioxide 23 mmol/L (22-29); Chloride 110 mmol/L (98-107); Creatinine Clr Calc Pharmacy 88.1326; Globulin 2.9 g/dL (1.3-4.6); Glomerular Filtration Rate 127.2 mL/min (90-130); Glucose 114 mg/dL (65-115); Magnesium 1.5 mg/dL (1.7-2.3); Osmolality Calculated 297 mOsm/kg (285-295); Potassium 4.3 mmol/L (3.5-5.1); Sodium 141 mmol/L (136-145); Total Bilirubin 0.5 mg/dL (0.15-1.2); Total Protein 4.9 g/dL (6.6-8.7)
[2024-07-23] MEDS: sodium chloride 0.9 % (flush) syringe 10 mL IV ×2 (04:18→16:03)
[2024-07-23] MEDS: heparin 5,000 unit/mL INJ 1 mL 5000 UNIT SUBCUT ×2 (04:18→16:01)
--- NOTE | 2024-07-23 07:12 | P.PN_ITS ---
Documented by User: STARLA Palomares 07/23/24 08:32 Subjective 2 Subjective: Patient remains in ICU. Last night patient, reportedly had a period of trigemini, tachycardia, tachypnea, fever of 101.9 and O2 sat of 80% on room air. Patient was stabilized with use of high flow nasal cannula and valium. This morning the patient remained on the high flow nasal cannula at 3L and still has decreased appetite. Will re-evaluate transfer to same day surgery center floor. Vitals/I&O/Wt Last Vital Signs Temp 97.7 F 07/23/24 04:00 Pulse 80 07/23/24 06:00 Resp 19 H 07/23/24 06:00 BP 96/63 07/23/24 06:00 Pulse Ox 97 07/23/24 06:00 O2 Del Method Nasal Cannula 07/23/24 06:00 O2 Flow Rate 3 07/23/24 06:00 FiO2 45 07/23/24 02:34 07/22/24 07/23/24 07/23/24 22:59 06:59 14:59 Intake Total 60 / 1140 250 / 1390 Output Total 300 / 300 Balance 60 / 1140 -50 / 1090 Weight last 48 hrs Weight 103 lb 9.876 oz Weight 97 lb 6.4 oz Physical Exam 2 Neck/C-Spine: OTHER: Supple. Central line noted. Resp: OTHER: Bilateral course sounds upon expiration, normal chest wall expansion Cardio: OTHER: Normal rate and rhythm without murmurs, gallops, and rubs GI: OTHER: Soft, nondistended, nontender with bowel sounds : OTHER: Calixto noted Extremity: OTHER: No cyanosis with slight edema in legs bilaterally Urinary Catheter Management: Calixto: Cath Placed During This Visit: yes Reason for Continuing Indwelling Catheter: Accurate Measurement of Urinary Output in Critically Ill Patients Urinary Catheter Date of Insertion: 07/23/24 Urinary Catheter Time of Insertion: 01:00 Data 07/23/24 03:18 07/23/24 03:18 Micro: Microbiology 07/22/24 05:40 Blood Culture - Preliminary Blood NEGATIVE TO DATE 07/22/24 04:15 Blood Culture - Preliminary Blood NEGATIVE TO DATE 07/20/24 17:30 Urine Culture - Preliminary Urine,Clean Catch A&P Assessment and plan (1) Community acquired pneumonia: Patient with sepsis secondary to pneumonia Received steriods in ER, steroids added last night. Repeated CXR showed bilateral consolidation and pleural effusions, with worsening of consolidation on the left side. Chest US was down to evaluate need for chest tube placement for effusions, amounts of fluid were not high enough to warrent thoracentesis. Lasix 20 mg IV x 1 to improve respiratory status in this patient with pleural effusions, who received significant fluid for resuscitation of sepsis Sputum cultures will be obtained Blood cultures positive for strep pneumoniae. Repeat cultures negative to date Continue Rocephin, stop Azithromycin today due to pneumonia likely from Strep. Pneumoniae Continue O2, wean as tolerated continue DuoNebs PRN Incentive spirometry Mobilize patient, continue PT (2) Severe sepsis: Patient with sepsis secondary to pneumonia. Labs showed WBCs still elevated at 17, RBCs still low at 3.51, Hgb increased slightly to 10 Potassium levels decreased to 4.3 after stopping fluids, continues to tolerate PO fluids BP has remained soft, but stable despite stopping the fluids and Levophed Blood culture was positive for strep pneumoniae Urine culture still pending MRSA PCR was positive, continue vanc 750mg IV q12 Continue Rocephin, stop Azithromycin today due to pneumonia likely from Strep. Pneumoniae Mg was 1.5, give 2g CBC and CMP with Mg tomorrow (3) Severe protein-calorie malnutrition: Patient appears to be cachexic and frail with current BMI of 20.2, increased fom yesterday 19.0 Patient has had weight loss of 5-10lbs in last 6 months, reported to always be small Her albumin has went up to 2.0 Will consult nutrition, patient has been able to tolerate taking sips of Ensure, but still reports decreased appetite Continue multi-vitamin, regular diet as tolerated (4) Rheumatoid arthritis: As per history, records from [facility] have been requested Establish rheumatological care outpatient (5) Psoriasis: As per history, supportive symptom management PRN Plan Patient has alopecia noted on exam, not currently on any medications related to treatment Echo was ordered secondary to elevated BNP, EF was 55% with 1/4 diastolic dysfunction with mild-moderate mitral regurg and trace aortic regurg Iron deficiency: Gave Venofer 200mg IV yesterday, give another dose today, recheck as outpatient Nausea: Continue Protonix BID and Reglan IV PRN for nausea Full code On heparin for DVT PPX Protonix for GI PPX Coding Level of Care Code 00010 Diagnoses Community acquired pneumonia J18.9 Severe sepsis A41.9; R65.20 Severe protein-calorie malnutrition E43 Rheumatoid arthritis M06.9 Psoriasis L40.9 Time Spent (min) 32 Documented by User: Jorge Macario MD 07/23/24 08:46 Subjective 2 Subjective: Patient remains in ICU. Last night patient, reportedly had a period of trigemini, tachycardia, tachypnea, fever of 101.9 and O2 sat of 80% on room air. Patient was stabilized with use of high flow nasal cannula and valium. This morning the patient remained onnasal cannula at 3L and still has decreased appetite. Chest ultrasound was ordered last night, IV steroids added. Small left effusion noted on chest ultrasound. Medications: Reviewed: Yes Physical Exam 2 Urinary Catheter Management: Calixto: Cath Placed During This Visit: yes Data 07/23/24 03:18 07/23/24 03:18 A&P Assessment and plan (1) Community acquired pneumonia: Patient with sepsis secondary to pneumonia Received steriods in ER, steroids added last night. Repeated CXR showed bilateral consolidation and pleural effusions, with worsening of consolidation on the left side. Chest US was down to evaluate need for chest tube placement for effusions, amounts of fluid were not high enough to warrent thoracentesis. Ordered incentive spirometry Lasix 20 mg IV x 1 to improve respiratory status in this patient with pleural effusions, who received significant fluid for resuscitation of sepsis Sputum cultures will be obtained Blood cultures positive for strep pneumoniae. Repeat cultures negative to date Continue Rocephin, stop Azithromycin today due to pneumonia likely from Strep. Pneumoniae Continue O2, wean as tolerated continue DuoNebs PRN Incentive spirometry Mobilize patient, continue PT (2) Severe sepsis: Patient with sepsis secondary to pneumonia. Labs showed WBCs still elevated at 17, RBCs still low at 3.51, Hgb increased slightly to 10 Potassium levels decreased to 4.3 after stopping fluids, continues to tolerate PO fluids BP has remained soft, but stable despite stopping the fluids and Levophed Blood culture was positive for strep pneumoniae Urine culture still pending MRSA PCR was positive, continue vanc 750mg IV q12 Continue Rocephin, stop Azithromycin after dose today today due to pneumonia likely from Strep. Pneumoniae Mg was 1.5, give 2g CBC and CMP with Mg tomorrow (3) Severe protein-calorie malnutrition: (4) Rheumatoid arthritis: (5) Psoriasis: Attestations 2 Medical Necessity Statement*: Needs continued hospitalization for IV antibiotics secondary strep pneumonia bacteremia with extensive pneumonia. Diagnoses Community acquired pneumonia J18.9 Severe sepsis A41.9; R65.20 Severe protein-calorie malnutrition E43 Rheumatoid arthritis M06.9 Psoriasis L40.9 Time Spent (min) 32
[2024-07-23] MEDS: magnesium sulfate premix 2 GM/50 ML PIGGYBACK IV (08:11)
[2024-07-23] MEDS: azithromycin 500 MG in sodium chloride 0.9% 250 ML 250 MG IV (08:11)
[2024-07-23] MEDS: guaiFENesin 600 mg Tablet PO ×2 (08:13→17:09)
[2024-07-23] MEDS: FUROsemide 10 mg/mL SDV 2mL 20 MG IVP (08:13)
[2024-07-23] MEDS: cefTRIAXone 2,000 mg SDV 2000 MG IVP (08:13)
[2024-07-23] MEDS: multivitamin therapeutic Tablet 1 TAB PO (08:13)
[2024-07-23] MEDS: iron sucrose 200 MG in sodium chloride 0.9% (100 ml) 100 ML 220 MG IV (09:05)
[2024-07-23] MEDS: vancomycin 1,000 MG in sodium chloride 0.9% 250 ML 250 MG IV ×2 (09:09→17:09)
[2024-07-23] MEDS: pantoprazole 40 mg SDV IVP ×2 (09:09→21:00)
[2024-07-24] VITALS (49 sets, daily range): BP systolic 99–142; BP diastolic 53–83; PULSE 66–101; RESP 16–29; TEMP 36.6–37; O2SAT 90–100; BMI 19.5
[2024-07-24] MEDS: dexamethasone 10 mg/mL INJ IVP (00:07)
[2024-07-24] MEDS: vancomycin 1,000 MG in sodium chloride 0.9% 250 ML 250 MG IV ×3 (00:09→22:12)
[2024-07-24] MEDS: heparin 5,000 unit/mL INJ 1 mL 5000 UNIT SUBCUT ×2 (03:54→17:45)
[2024-07-24] MEDS: sodium chloride 0.9 % (flush) syringe 10 mL IV ×2 (03:59→18:00)
[2024-07-24 05:08] LABS: Basophils % 0.2 %; Eosinophils % 0.1 %; Hematocrit 30.7 % (36-47); Lymphocytes # 0.6 10^3/uL (0.8-4.8); Mean Corpuscular HGB Conc 32.2 g/dL (30-55); Mean Corpuscular Volume 86.7 fl (85-98); Mean Platelet Volume 10.1 fL (7.4-10.4); Monocytes # 0.3 10^3/uL (0.2-0.9); Monocytes % 1.6 %; Neutrophils # 17.57 10^3/uL (1.8-7.7); Neutrophils % 88.5 %; Nucleated Red Blood Cells % 0 %; Platelet Count 468 10^3/cmm (157-399); Red Blood Count 3.54 10^6/uL (3.85-5.65); Red Cell Distribution Width 14.8 % (12.1-15.1); White Blood Count 19.86 10^3/uL (3.29-11.43)
[2024-07-24 05:26] LABS: Alanine Aminotransferase 14 U/L (0-33); Albumin Level 1.8 g/dL (3.5-5.2); Alkaline Phosphatase 104 U/L (35-105); Anion Gap 10.3 (5-19); Aspartate Amino Transferase 20 U/L (0-32); Blood Urea Nitrogen 21 mg/dL (6-20); Calcium 7.8 mg/dL (8.5-10.5); Carbon Dioxide 28 mmol/L (22-29); Chloride 107 mmol/L (98-107); Globulin 3.1 g/dL (1.3-4.6); Glomerular Filtration Rate 164.5 mL/min (90-130); Glucose 129 mg/dL (65-115); Magnesium 1.8 mg/dL (1.7-2.3); Osmolality Calculated 297 mOsm/kg (285-295); Potassium 4.3 mmol/L (3.5-5.1); Sodium 141 mmol/L (136-145); Total Bilirubin 0.3 mg/dL (0.15-1.2); Total Protein 4.9 g/dL (6.6-8.7)
[2024-07-24 05:27] LABS: Slide Review Slide Review Perform
--- NOTE | 2024-07-24 06:55 | P.PN_ITS ---
Documented by User: STARLA Palomares [email or web address] 07/24/24 09:00 Subjective 2 Subjective: Patient is doing better, was able to transfer to the chair with nursing and states she would like to try to eat cereal and fruit. Patient is still weak and unable to eat much due to decreased appetite. Patient denies chest pain, headache, abdominal pain, and fevers. Patient does have some SOB but is clear on auscultation. Vitals/I&O/Wt Last Vital Signs Temp 98.3 F 07/24/24 06:00 Pulse 76 07/24/24 05:50 Resp 24 H 07/23/24 20:00 BP 110/67 07/24/24 04:00 Pulse Ox 95 07/24/24 04:00 O2 Del Method High Flow Nasal Cannula 07/23/24 22:00 O2 Flow Rate 2.5 07/23/24 22:00 FiO2 45 07/23/24 02:34 07/23/24 07/23/24 07/24/24 14:59 22:59 06:59 Intake Total 660 / 660 370 / 1030 250 / 1280 Output Total 1100 / 1100 1150 / 2250 800 / 3050 Balance -440 / -440 -780 / -1220 -550 / -1770 Weight last 48 hrs Weight 100 lb 4.965 oz Weight 103 lb 9.876 oz Physical Exam 2 Const: OTHER: Frail and small white woman Neck/C-Spine: OTHER: Supple without thyromegaly and lymphadenopathy. Central line noted on right side. Resp: OTHER: Bilateral breath sounds, clear to auscultation, chest wall expansion Cardio: OTHER: Normal rate and rhythm without murmurs, gallops, or rubs GI: OTHER: Soft, nondistended, nontender with bowel sounds : OTHER: Calixto noted Extremity: OTHER: No edema or cyanosis Urinary Catheter Management: Calixto: Cath Placed During This Visit: yes Reason for Continuing Indwelling Catheter: Accurate Measurement of Urinary Output in Critically Ill Patients Urinary Catheter Date of Insertion: 07/23/24 Urinary Catheter Time of Insertion: 01:00 Data 07/24/24 04:25 07/24/24 04:25 Micro: Microbiology 07/20/24 17:30 Urine Culture - Final Urine,Clean Catch 07/22/24 05:40 Blood Culture - Preliminary Blood NEGATIVE TO DATE 07/22/24 04:15 Blood Culture - Preliminary Blood NEGATIVE TO DATE A&P Assessment and plan (1) Community acquired pneumonia: Patient with sepsis secondary to pneumonia Received steriods in ER, continue dexamethasone 6mg q24hr Repeated CXR showed bilateral consolidation and pleural effusions, with worsening of consolidation on the left side. Stop Lasix due to improved respiratory status with significant output of 3L Remove Calixto Sputum cultures will be obtained Blood cultures positive for strep pneumoniae. Repeat cultures negative to date Continue Rocephin, stop Azithromycin today due to pneumonia likely from Strep. Pneumoniae Continue O2, wean as tolerated Continue DuoNebs PRN Incentive spirometry Mobilize patient, continue PT (2) Severe protein-calorie malnutrition: Patient appears to be cachexic and frail with current BMI of 19.6 decreased from yesterday 20.2 Patient has had weight loss of 5-10lbs in last 6 months, reported to always be small Her albumin has went down to 1.8 Will consult nutrition, patient has been able to tolerate taking sips of Ensure, but still reports decreased appetite Patient prefers Ensure in bottle not the box, continue dysphagia diet Continue multi-vitamin, regular diet as tolerated (3) Severe sepsis: Patient with sepsis secondary to pneumonia. Labs showed WBCs increased to 19. likely secondary to steroids, RBCs still low at 3.54, Hgb decreased to 9.9 Potassium levels decreased to 4.3 after stopping fluids, continues to tolerate PO fluids BP has remained soft, but stable despite stopping the fluids and Levophed Blood culture was positive for strep pneumoniae Urine culture still pending MRSA PCR was positive, continue vanc 750mg IV q12 Continue Rocephin, stop Azithromycin today due to pneumonia likely from Strep. Pneumoniae Mg was 1.8. increased from 1.5 CBC and CMP with Mg tomorrow (4) Rheumatoid arthritis: Supportive symptom management PRN. Establish rheumatological care outpatient (5) Psoriasis: As per history, supportive symptom management PRN Plan Patient has alopecia noted on exam, not currently on any medications related to treatment Echo was ordered secondary to elevated BNP, EF was 55% with 1/4 diastolic dysfunction with mild-moderate mitral regurg and trace aortic regurg Iron deficiency: Gave three infusions already, recheck as outpatient Nausea: Continue Protonix BID and Reglan IV PRN for nausea Full code On heparin for DVT PPX Protonix for GI PPX Coding Level of Care Code 95297 Diagnoses Community acquired pneumonia J18.9 Severe protein-calorie malnutrition E43 Severe sepsis A41.9; R65.20 Rheumatoid arthritis M06.9 Psoriasis L40.9 Time Spent (min) 26 Documented by User: Jorge Macario MD 07/24/24 09:01 Subjective 2 Medications: Reviewed: Yes Physical Exam 2 Urinary Catheter Management: Calixto: Cath Placed During This Visit: yes Data 07/24/24 04:25 07/24/24 04:25 A&P Assessment and plan (1) Community acquired pneumonia: Patient with sepsis secondary to pneumonia Received steriods in ER, continue dexamethasone 6mg q24hr. Changed to p.o. Repeated CXR showed bilateral consolidation and pleural effusions, with worsening of consolidation on the left side. Stop Lasix due to improved respiratory status with significant output of 3L Remove Calixto Sputum cultures still pending Blood cultures positive for strep pneumoniae. Repeat cultures negative to date Continue Rocephin, stop Azithromycin today due to pneumonia likely from Strep. Pneumoniae Continue O2, wean as tolerated Continue DuoNebs PRN Incentive spirometry Mobilize patient, continue PT As MRSA PCR was positive will continue vancomycin at this time. White blood cell count has increased slightly, no fevers, white blood cell count increased thought to be secondary to addition of steroids. (2) Severe protein-calorie malnutrition: (3) Severe sepsis: (4) Rheumatoid arthritis: (5) Psoriasis: Attestations 2 Medical Necessity Statement*: Needs continued hospitalization for IV antibiotics secondary strep pneumonia sepsis, extensive pneumonia Diagnoses Community acquired pneumonia J18.9 Severe protein-calorie malnutrition E43 Severe sepsis A41.9; R65.20 Rheumatoid arthritis M06.9 Psoriasis L40.9 Time Spent (min) 26
[2024-07-24] MEDS: cefTRIAXone 2,000 mg SDV 2000 MG IVP (08:00)
[2024-07-24] MEDS: dexamethasone 10 mg/mL INJ 6 MG PO (08:00)
[2024-07-24] MEDS: multivitamin therapeutic Tablet 1 TAB PO (08:01)
[2024-07-24] MEDS: guaiFENesin 600 mg Tablet PO ×2 (08:01→17:46)
[2024-07-24] MEDS: pantoprazole 40 mg SDV IVP ×2 (08:02→21:12)
[2024-07-24] MEDS: ipratropium-albuterol 3 mL Neb INHALATION ×2 (08:26→21:06)
[2024-07-24 09:01] LABS: Vancomycin Trough 25.5 ug/mL (10-15)
[2024-07-24 16:54] LABS: Vancomycin Trough 23.5 ug/mL (10-15)
--- NOTE | 2024-07-24 21:24 | PC.NURSE ---
Food Patient stated that her family were going to bring her a hamburger to eat. This nurse educated patient on her dysphagia diet and the dangers of choking. Patient was understanding and stated that she would cut up the hamburger into bites. This nurse also provided education to the family when they arrived and they were agreeable to teaching.
[2024-07-25] VITALS (39 sets, daily range): BP systolic 99–126; BP diastolic 55–77; PULSE 68–89; RESP 14–23; TEMP 37; O2SAT 90–100
[2024-07-25] MEDS: heparin 5,000 unit/mL INJ 1 mL 5000 UNIT SUBCUT ×2 (03:57→16:58)
[2024-07-25] MEDS: sodium chloride 0.9 % (flush) syringe 10 mL IV ×2 (04:01→16:59)
[2024-07-25 05:20] LABS: Basophils % 0.2 %; Eosinophils # 0.1 10^3/uL (0.0-0.8); Eosinophils % 0.8 %; Hematocrit 29.9 % (36-47); Lymphocytes # 2.2 10^3/uL (0.8-4.8); Lymphocytes % 13.9 %; Mean Corpuscular HGB Conc 31.4 g/dL (30-55); Mean Corpuscular Hemoglobin 27.9 pg (27-33); Mean Corpuscular Volume 88.7 fl (85-98); Mean Platelet Volume 9.9 fL (7.4-10.4); Monocytes # 0.7 10^3/uL (0.2-0.9); Monocytes % 4.4 %; Neutrophils # 11.22 10^3/uL (1.8-7.7); Neutrophils % 70.9 %; Nucleated Red Blood Cells % 0 %; Platelet Count 510 10^3/cmm (157-399); Red Blood Count 3.37 10^6/uL (3.85-5.65); Red Cell Distribution Width 14.7 % (12.1-15.1); White Blood Count 15.81 10^3/uL (3.29-11.43)
[2024-07-25 05:42] LABS: Anion Gap 9.8 (5-19); Blood Urea Nitrogen 24 mg/dL (6-20); Calcium 7.9 mg/dL (8.5-10.5); Carbon Dioxide 28 mmol/L (22-29); Chloride 107 mmol/L (98-107); Creatinine Clr Calc Pharmacy 111.4592; Glomerular Filtration Rate 164.5 mL/min (90-130); Glucose 99 mg/dL (65-115); Osmolality Calculated 296 mOsm/kg (285-295); Potassium 3.8 mmol/L (3.5-5.1); Sodium 141 mmol/L (136-145)
[2024-07-25 05:46] LABS: Slide Review Slide Review Perform
[2024-07-25] MEDS: cefTRIAXone 2,000 mg SDV 2000 MG IVP (08:06)
[2024-07-25] MEDS: dexamethasone 10 mg/mL INJ 6 MG PO (08:06)
[2024-07-25] MEDS: multivitamin therapeutic Tablet 1 TAB PO (08:06)
[2024-07-25] MEDS: pantoprazole 40 mg SDV IVP ×2 (08:06→21:16)
[2024-07-25] MEDS: guaiFENesin 600 mg Tablet PO ×2 (08:06→16:58)
[2024-07-25] MEDS: ipratropium-albuterol 3 mL Neb INHALATION (08:41)
[2024-07-25] MEDS: vancomycin 1,000 MG in sodium chloride 0.9% 250 ML 250 MG IV ×2 (09:57→21:16)
--- NOTE | 2024-07-25 17:06 | P.PN_ITS ---
Subjective 2 Subjective: Seen this morning no acute events overnight. Blood culture negative to date. Sputum growing's yeast WBC count 15.8 this morning. Patient states she feels slightly better. Vitals/I&O/Wt Last Vital Signs Temp 98.6 F 07/24/24 20:54 Pulse 83 07/25/24 16:00 Resp 19 H 07/25/24 16:00 BP 112/69 07/25/24 16:00 Pulse Ox 94 07/25/24 16:00 O2 Del Method Nasal Cannula 07/25/24 08:40 O2 Flow Rate 3 07/25/24 08:40 FiO2 45 07/23/24 02:34 07/25/24 07/25/24 07/25/24 06:59 14:59 22:59 Intake Total 250 / 1150 330 / 330 Output Total 375 / 875 Balance -125 / 275 330 / 330 Weight last 48 hrs Weight 46.5 kg Weight 45.5 kg Physical Exam 2 Narrative: General: Alert oriented x3, patient seen sitting up in bed appearing comfortable at this time. Central line in place right IJ. Frail-appearing cachectic female. HEENT: Normocephalic, atraumatic, EOMI, breathing failure nasal cannula. Cardio: Regular rate rhythm, normal S1-S2, Respiratory: Mainly clear to auscultation with Rales bilaterally at bases. GI: Abdomen soft, nontender, nondistended, bowel sounds + Extremities: No edema bilateral lower extremities. Urinary Catheter Management: Calixto: Cath Placed During This Visit: yes Reason for Continuing Indwelling Catheter: Accurate Measurement of Urinary Output in Critically Ill Patients Urinary Catheter Date of Insertion: 07/23/24 Urinary Catheter Time of Insertion: 01:00 Data 07/25/24 04:55 07/25/24 04:55 Micro: Microbiology 07/24/24 08:45 Gram Stain - Final Sputum - Expectorated Sputum Sputum Culture - Preliminary Yeast species 07/20/24 07:52 Blood Culture - Final Blood Streptococcus pneumoniae 07/20/24 07:16 Blood Culture - Final Blood Streptococcus pneumoniae A&P Assessment and plan (1) Body mass index (BMI) less than or equal to 19 in adult: (2) Severe protein-calorie malnutrition: (3) Severe sepsis: (4) Rheumatoid arthritis: (5) Community acquired pneumonia: (6) Psoriasis: (7) Alopecia: (8) Streptococcus pneumoniae pneumonia: (9) Bacteremia: (10) Oxygen dependent: Plan #Severe sepsis secondary to strep pneumo pneumonia present on admission #Strep pneumo bacteremia #Rheumatoid arthritis #Psoriasis #Alopecia #Severe protein calorie malnutrition #Oxygen dependency -Sputum positive for strep pneumo ? Strep pneumo bacteremia repeat cultures negative to date. ? MRSA PCR positive ? Continue patient on vancomycin, ceftriaxone ? WBC count persistently elevated 15,000, could possibly be attributed to steroids ? Chest ultrasound obtained 07/23 showed left pleural effusion with consolidation ? CT chest appreciated from admission ? Patient to follow-up outpatient with rheumatology for her psoriasis and rheumatoid arthritis after discharge ? Cachexia: Protein calorie malnutrition. Continue Ensure. Dietitian consulted. ? Continue oxygen and wean as tolerated ? Incentive spirometry ? Continue physical therapy, mobilize patient. ? Continue guaifenesin -White count still elevated. Continue to hospitalize at this time. ? Continue to recheck CBC, BMP daily. ? Speech therapy ? Continue steroids due to severity of condition. DVT prophylaxis: Heparin subcu twice daily Full code May transfer to cardiac stepdown unit. Attestations 2 Medical Necessity Statement*: Continue to hospitalize for severe sepsis secondary to pneumonia and strep pneumo bacteremia. Continue IV antibiotics. White count still elevated. Diagnoses Body mass index (BMI) less than or equal to 19 in adult Z68.1 Severe protein-calorie malnutrition E43 Severe sepsis A41.9; R65.20 Rheumatoid arthritis M06.9 Community acquired pneumonia J18.9 Psoriasis L40.9 Alopecia L65.9 Streptococcus pneumoniae pneumonia J13 Bacteremia R78.81 Oxygen dependent Z99.81
[2024-07-25] MEDS: diazePAM 2 mg Tablet PO (22:34)
[2024-07-26] VITALS (13 sets, daily range): BP systolic 97–124; BP diastolic 57–72; PULSE 76–87; RESP 16–18; TEMP 36.6–37.2; O2SAT 90–95
[2024-07-26] MEDS: heparin 5,000 unit/mL INJ 1 mL 5000 UNIT SUBCUT ×2 (04:24→17:50)
[2024-07-26 05:35] LABS: Basophils % 0.1 %; Eosinophils # 0.1 10^3/uL (0.0-0.8); Eosinophils % 0.7 %; Hematocrit 31.1 % (36-47); Lymphocytes # 1.9 10^3/uL (0.8-4.8); Lymphocytes % 13.8 %; Mean Corpuscular HGB Conc 31.8 g/dL (30-55); Mean Corpuscular Hemoglobin 28.5 pg (27-33); Mean Corpuscular Volume 89.6 fl (85-98); Mean Platelet Volume 10.3 fL (7.4-10.4); Monocytes # 0.6 10^3/uL (0.2-0.9); Monocytes % 4.3 %; Neutrophils # 10.28 10^3/uL (1.8-7.7); Nucleated Red Blood Cells % 0 %; Platelet Count 533 10^3/cmm (157-399); Red Blood Count 3.47 10^6/uL (3.85-5.65); White Blood Count 14.09 10^3/uL (3.29-11.43)
[2024-07-26 05:55] LABS: Anion Gap 11.8 (5-19); Blood Urea Nitrogen 18 mg/dL (6-20); Calcium 7.8 mg/dL (8.5-10.5); Carbon Dioxide 29 mmol/L (22-29); Chloride 103 mmol/L (98-107); Creatinine Clr Calc Pharmacy 88.4572; Glomerular Filtration Rate 127.2 mL/min (90-130); Glucose 86 mg/dL (65-115); Magnesium 1.5 mg/dL (1.7-2.3); Osmolality Calculated 291 mOsm/kg (285-295); Potassium 3.8 mmol/L (3.5-5.1); Sodium 140 mmol/L (136-145)
[2024-07-26 06:14] LABS: Slide Review Slide Review Perform
[2024-07-26] MEDS: dexamethasone 10 mg/mL INJ 6 MG PO (06:31)
[2024-07-26] MEDS: cefTRIAXone 2,000 mg SDV 2000 MG IVP (08:24)
[2024-07-26] MEDS: multivitamin therapeutic Tablet 1 TAB PO (08:24)
[2024-07-26] MEDS: guaiFENesin 600 mg Tablet PO ×2 (08:25→17:50)
[2024-07-26] MEDS: pantoprazole 40 mg SDV IVP ×2 (09:00→21:34)
[2024-07-26 09:27] LABS: Vancomycin Trough 16.8 ug/mL (10-15)
--- NOTE | 2024-07-26 10:28 | P.PN_ITS ---
Subjective 2 Subjective: Seen this morning. Patient on 3 L nasal cannula at this time. Says she feels slightly better. Vitals/I&O/Wt Last Vital Signs Temp 98.3 F 07/27/24 10:00 Pulse 75 07/27/24 10:00 Resp 16 07/27/24 10:00 BP 112/70 07/27/24 10:00 Pulse Ox 97 07/27/24 10:00 O2 Del Method Nasal Cannula 07/27/24 10:00 O2 Flow Rate 3 07/27/24 04:00 FiO2 45 07/23/24 02:34 07/26/24 07/27/24 07/27/24 22:59 06:59 14:59 Intake Total 350 / 960 470 / 470 Balance 350 / 960 470 / 470 Weight last 48 hrs Weight 44.65 kg Weight 44.594 kg Physical Exam 2 Narrative: General: Alert oriented x3, patient seen sitting up in bed appearing comfortable at this time. Central line in place right IJ. Frail-appearing cachectic female. HEENT: Normocephalic, atraumatic, EOMI, breathing failure nasal cannula. Cardio: Regular rate rhythm, normal S1-S2, Respiratory: Mainly clear to auscultation with Rales bilaterally at bases. GI: Abdomen soft, nontender, nondistended, bowel sounds + Extremities: No edema bilateral lower extremities. Urinary Catheter Management: Calixto: Cath Placed During This Visit: yes Reason for Continuing Indwelling Catheter: Accurate Measurement of Urinary Output in Critically Ill Patients Urinary Catheter Date of Insertion: 07/23/24 Urinary Catheter Time of Insertion: 01:00 Data 07/27/24 04:46 07/27/24 04:46 Micro: Microbiology 07/22/24 04:15 Blood Culture - Final Blood NO GROWTH AFTER 5 DAYS 07/22/24 05:40 Blood Culture - Final Blood NO GROWTH AFTER 5 DAYS A&P Assessment and plan (1) Body mass index (BMI) less than or equal to 19 in adult: (2) Severe protein-calorie malnutrition: (3) Severe sepsis: (4) Rheumatoid arthritis: (5) Community acquired pneumonia: (6) Psoriasis: (7) Alopecia: (8) Streptococcus pneumoniae pneumonia: (9) Bacteremia: (10) Oxygen dependent: Plan #Severe sepsis secondary to strep pneumo pneumonia present on admission #Strep pneumo bacteremia #Rheumatoid arthritis #Psoriasis #Alopecia #Severe protein calorie malnutrition #Oxygen dependency -Sputum positive for strep pneumo ? Strep pneumo bacteremia repeat cultures negative to date. ? MRSA PCR positive ? Continue patient on vancomycin, ceftriaxone ? WBC count persistently elevated 15,000, could possibly be attributed to steroids ? Chest ultrasound obtained 07/23 showed left pleural effusion with consolidation ? CT chest appreciated from admission ? Patient to follow-up outpatient with rheumatology for her psoriasis and rheumatoid arthritis after discharge ? Cachexia: Protein calorie malnutrition. Continue Ensure. Dietitian consulted. ? Continue oxygen and wean as tolerated ? Incentive spirometry ? Continue physical therapy, mobilize patient. ? Continue guaifenesin -White count still elevated. Continue to hospitalize at this time. ? Continue to recheck CBC, BMP daily. ? Speech therapy ? Continue steroids due to severity of condition. DVT prophylaxis: Heparin subcu twice daily Full code 07/26 Check chest x-ray 2 views today Continue IV antibiotics at this time Home oxygen evaluation before discharge Continue above therapy for now. White count still elevated. Attestations 2 Medical Necessity Statement*: Continue to hospitalize for severe sepsis secondary to pneumonia and strep pneumo bacteremia. Continue IV antibiotics. White count still elevated. Diagnoses Body mass index (BMI) less than or equal to 19 in adult Z68.1 Severe protein-calorie malnutrition E43 Severe sepsis A41.9; R65.20 Rheumatoid arthritis M06.9 Community acquired pneumonia J18.9 Psoriasis L40.9 Alopecia L65.9 Streptococcus pneumoniae pneumonia J13 Bacteremia R78.81 Oxygen dependent Z99.81
[2024-07-26] MEDS: vancomycin 1,000 MG in sodium chloride 0.9% 250 ML 250 MG IV ×2 (10:39→21:34)
--- NOTE | 2024-07-26 13:06 | XRR_ITS ---
PROCEDURE INFORMATION: Exam: XR Chest Exam date and time: 07/26/2024 5:31 PM Age: 59 years old Clinical indication: Shortness of breath; Patient HX: SOB; Pleural effusions TECHNIQUE: Imaging protocol: Radiologic exam of the chest. Views: 2 views. COMPARISON: CR (CHEST, ) 07/23/2024 12:19 AM FINDINGS: Lungs: There is pulmonary vascular congestion. Superimposed pneumonia in the right lung base would be difficult to exclude proper clinical setting. Pleural spaces: No evidence of pneumothorax. Small bilateral pleural effusions. Heart/Mediastinum: Cardiomediastinal silhouette is within normal limits. Right-sided central venous catheter in place with tip in the region of the cavoatrial junction. Bones/joints: No evidence of acute osseous abnormality. XR/XR chest 2V* 32005 IMPRESSION: 1. Pulmonary vascular congestion and small bilateral pleural effusions. Superimposed pneumonia in the right lung base would be difficult to exclude proper clinical setting.
[2024-07-26] MEDS: acetaminophen 325 mg Tablet 650 MG PO (17:56)
[2024-07-26] MEDS: sodium chloride 0.9 % (flush) syringe 10 mL IV (18:17)
[2024-07-26] MEDS: diazePAM 2 mg Tablet PO (20:06)
[2024-07-26] MEDS: ipratropium-albuterol 3 mL Neb INHALATION (22:03)
[2024-07-27] VITALS (10 sets, daily range): BP systolic 110–121; BP diastolic 65–75; PULSE 66–83; RESP 16–20; TEMP 36.4–36.8; O2SAT 84–98
[2024-07-27] MEDS: heparin 5,000 unit/mL INJ 1 mL 5000 UNIT SUBCUT ×2 (04:30→16:17)
[2024-07-27] MEDS: sodium chloride 0.9 % (flush) syringe 10 mL IV ×2 (04:31→16:40)
[2024-07-27 05:54] LABS: Hematocrit 31.9 % (36-47); Mean Corpuscular HGB Conc 30.7 g/dL (30-55); Mean Corpuscular Hemoglobin 28.1 pg (27-33); Mean Corpuscular Volume 91.4 fl (85-98); Platelet Count 512 10^3/cmm (157-399); Red Blood Count 3.49 10^6/uL (3.85-5.65); Red Cell Distribution Width 15.3 % (12.1-15.1); White Blood Count 12.17 10^3/uL (3.29-11.43)
[2024-07-27 06:08] LABS: Anion Gap 11.7 (5-19); Blood Urea Nitrogen 18 mg/dL (6-20); Calcium 7.8 mg/dL (8.5-10.5); Carbon Dioxide 26 mmol/L (22-29); Chloride 105 mmol/L (98-107); Creatinine Clr Calc Pharmacy 110.6263; Glomerular Filtration Rate 164.5 mL/min (90-130); Glucose 87 mg/dL (65-115); Osmolality Calculated 289 mOsm/kg (285-295); Potassium 3.7 mmol/L (3.5-5.1); Sodium 139 mmol/L (136-145)
[2024-07-27] MEDS: dexamethasone 10 mg/mL INJ 6 MG PO (06:41)
[2024-07-27 06:51] LABS: Slide Review Slide Review Perform
[2024-07-27 06:53] LABS: Absolute Eosinophils 0.1 10^3/cmm (0.0-0.7); Band Neutrophils Absolute 0.7 10^3/cmm (0.0-1.2); Eosinophils 1 %; Lymphocytes 21 %; Monocytes Absolute 0.2 10^3/cmm (0.1-0.6); Segmented Neutrophils 66 %; Total Cells Counted 100 (0-100)
[2024-07-27 06:54] LABS: Absolute Neutrophil 8.8 10^3/cmm (1.4-6.5); Lymphocytes Absolute 2.6 10^3/cmm (1.2-3.4); Platelet Estimate Increased (Normal)
[2024-07-27] MEDS: pantoprazole 40 mg SDV IVP ×2 (08:41→20:32)
[2024-07-27] MEDS: cefTRIAXone 2,000 mg SDV 2000 MG IVP (08:42)
[2024-07-27] MEDS: multivitamin therapeutic Tablet 1 TAB PO (08:45)
[2024-07-27] MEDS: guaiFENesin 600 mg Tablet PO ×2 (08:45→18:33)
[2024-07-27] MEDS: HYDROcodone-acetaminophen 5-325 mg Tablet 1 TAB PO (09:02)
[2024-07-27] MEDS: vancomycin 1,000 MG in sodium chloride 0.9% 250 ML 250 MG IV ×2 (10:47→22:08)
--- NOTE | 2024-07-27 12:28 | P.PN_ITS ---
Subjective 2 Subjective: Seen this morning. No acute events overnight. White count down to 12,000 however worsening absolute neutrophils and bandemia present 6%. Patient clinically appears better. Still requiring 3 L nasal cannula at rest. Requesting regular diet. Awaiting to be seen by speech therapy. Vitals/I&O/Wt Last Vital Signs Temp 98.3 F 07/27/24 10:00 Pulse 75 07/27/24 10:00 Resp 16 07/27/24 10:00 BP 112/70 07/27/24 10:00 Pulse Ox 97 07/27/24 10:00 O2 Del Method Nasal Cannula 07/27/24 10:00 O2 Flow Rate 3 07/27/24 04:00 FiO2 45 07/23/24 02:34 07/26/24 07/27/24 07/27/24 22:59 06:59 14:59 Intake Total 350 / 960 470 / 470 Balance 350 / 960 470 / 470 Weight last 48 hrs Weight 44.65 kg Weight 44.594 kg Physical Exam 2 Narrative: General: Alert oriented x3, patient seen sitting up in bed appearing comfortable at this time. Central line in place right IJ. Frail-appearing cachectic female. HEENT: Normocephalic, atraumatic, EOMI, breathing failure nasal cannula. Cardio: Regular rate rhythm, normal S1-S2, Respiratory: Mainly clear to auscultation no gross wheezes or rhonchi. GI: Abdomen soft, nontender, nondistended, bowel sounds + Extremities: No edema bilateral lower extremities. Urinary Catheter Management: Calixto: Cath Placed During This Visit: yes Reason for Continuing Indwelling Catheter: Accurate Measurement of Urinary Output in Critically Ill Patients Urinary Catheter Date of Insertion: 07/23/24 Urinary Catheter Time of Insertion: 01:00 Data 07/27/24 04:46 07/27/24 04:46 Micro: Microbiology 07/22/24 04:15 Blood Culture - Final Blood NO GROWTH AFTER 5 DAYS 07/22/24 05:40 Blood Culture - Final Blood NO GROWTH AFTER 5 DAYS A&P Assessment and plan (1) Body mass index (BMI) less than or equal to 19 in adult: (2) Severe protein-calorie malnutrition: (3) Severe sepsis: (4) Rheumatoid arthritis: (5) Community acquired pneumonia: (6) Psoriasis: (7) Alopecia: (8) Streptococcus pneumoniae pneumonia: (9) Bacteremia: (10) Oxygen dependent: Plan #Severe sepsis secondary to strep pneumo pneumonia present on admission #Strep pneumo bacteremia #Rheumatoid arthritis #Psoriasis #Alopecia #Severe protein calorie malnutrition #Oxygen dependency -Sputum positive for strep pneumo ? Strep pneumo bacteremia repeat cultures negative to date. ? MRSA PCR positive ? Continue patient on vancomycin, ceftriaxone ? WBC count persistently elevated 15,000, could possibly be attributed to steroids ? Chest ultrasound obtained 07/23 showed left pleural effusion with consolidation ? CT chest appreciated from admission ? Patient to follow-up outpatient with rheumatology for her psoriasis and rheumatoid arthritis after discharge ? Cachexia: Protein calorie malnutrition. Continue Ensure. Dietitian consulted. ? Continue oxygen and wean as tolerated ? Incentive spirometry ? Continue physical therapy, mobilize patient. ? Continue guaifenesin -White count still elevated. Continue to hospitalize at this time. ? Continue to recheck CBC, BMP daily. ? Speech therapy ? Continue steroids due to severity of condition. DVT prophylaxis: Heparin subcu twice daily Full code 07/27 Check chest x-ray 2 views today Continue IV antibiotics at this time Home oxygen evaluation before discharge Continue above therapy for now. White count still elevated. Consult ID. Patient will most likely need IV antibiotics ceftriaxone 2 g daily x 14 days total. Discussed with RN regarding putting central line and placing a peripheral. Central line was placed due to poor IV access. Discussed with RN yesterday and today. Check speech therapy Attestations 2 Medical Necessity Statement*: Continue to hospitalize for severe sepsis secondary to pneumonia and strep pneumo bacteremia. Continue IV antibiotics. White count still elevated. Diagnoses Body mass index (BMI) less than or equal to 19 in adult Z68.1 Severe protein-calorie malnutrition E43 Severe sepsis A41.9; R65.20 Rheumatoid arthritis M06.9 Community acquired pneumonia J18.9 Psoriasis L40.9 Alopecia L65.9 Streptococcus pneumoniae pneumonia J13 Bacteremia R78.81 Oxygen dependent Z99.81
--- NOTE | 2024-07-27 15:20 | PICC.NOTE ---
Midline placed to left brachial vein. Referred to vascular access nurse for midline placement due to need for IV antibiotics x 10 days. Risks and benefits discussed and informed consent obtained from patient. Left arm assessed with brachial vein measuring 3.2 mm, straight, and apparent best choice for placement. Using sterile technique and MST, left brachial vein accessed x 1 stick. Mid-arm circumference measured 10 cm from left AC 19 cm. Trimmed cath 10 cm with 0 cm external length noted. Line secured with stat-lock. Insertion site covered with Biopatch and TSM. Report given to bedside nurse, SOFY Hendrickson.
[2024-07-27] MEDS: acetaminophen 325 mg Tablet 650 MG PO (20:31)
[2024-07-27] MEDS: morphine 4 mg/mL SDV 1 mL 1 MG IVP (22:06)
[2024-07-28] VITALS: BP 112/62; PULSE 62; RESP 17; TEMP 36.6; O2SAT 96
[2024-07-28 02:59] VITALS: RESP 18
[2024-07-28] MEDS: morphine 4 mg/mL SDV 1 mL 1 MG IVP (02:59)
[2024-07-28 04:00] VITALS: BP 108/66; PULSE 65; RESP 16; TEMP 36.5; O2SAT 97
[2024-07-28] MEDS: heparin 5,000 unit/mL INJ 1 mL 5000 UNIT SUBCUT (04:22)
[2024-07-28] MEDS: sodium chloride 0.9 % (flush) syringe 10 mL IV (04:23)
[2024-07-28 06:00] VITALS: PULSE 76
[2024-07-28 06:07] LABS: Basophils % 0.2 %; Eosinophils # 0.1 10^3/uL (0.0-0.8); Eosinophils % 0.6 %; Hematocrit 31.6 % (36-47); Lymphocytes # 1.7 10^3/uL (0.8-4.8); Lymphocytes % 15.2 %; Mean Corpuscular Hemoglobin 28.1 pg (27-33); Mean Corpuscular Volume 90.5 fl (85-98); Mean Platelet Volume 10.1 fL (7.4-10.4); Monocytes # 0.5 10^3/uL (0.2-0.9); Monocytes % 4.2 %; Nucleated Red Blood Cells % 0 %; Platelet Count 461 10^3/cmm (157-399); Red Blood Count 3.49 10^6/uL (3.85-5.65); Red Cell Distribution Width 15.3 % (12.1-15.1); White Blood Count 11.33 10^3/uL (3.29-11.43)
--- NOTE | 2024-07-28 06:18 | P.HP_ITS ---
Providers/Chief Complaint 2 Admitting Physician: Angelina Dean MD Chief Complaint: Weakness,SOB History of Present Illness Brittany Roy is a 59 year old female admitted to the hospital on July 20, 2024 with 1 week of being unwell. Patient complains of fever, generalized weakness and shortness of breath. She was found to have evidence of bilateral pneumonia, right worse than left and mediastinal lymphadenopathy. She was hypotensive initially upon arrival with lactic acidosis. She required initiation of pressor support with Levophed which did improve her symptoms. She started empiric antibiotic treatment with ceftriaxone and azithromycin. Blood cultures returned positive for Streptococcus pneumoniae. She is not currently on any immunocompromising medications. Her leukocytosis has improved from peak of 24,000-11,000 currently. Tmax 101.9 Fahrenheit on July 23, 2024. Oxygen requirement is currently improved at 3 L/min from being on 6 L/min upon arrival and transiently requiring heated high flow on 11/26/2023. Patient has a history of rheumatoid arthritis and psoriasis, not on any systemic medications for these. Infectious disease was consulted to opine regarding duration of antibiotics. Patient states that she has had 3 episodes of pneumonia in the past year. She is noted to have several small joint swelling including bilateral hands and feet. Currently she is complaining of severe pain involving her lower extremity digits. Her skin is flaky, has several areas of dry patches involving face and all extremities Review of Systems 2 General: Reports: 10 or more systems reviewed and unremarkable except in HPI and below Const: Denies: fever(s), chills or body aches Eyes: Denies: change in vision, blurry vision or photophobia ENMT: Reports: hoarseness; Denies: throat pain, enlarged tonsils, odynophagia or nasal congestion Card: Denies: chest pain, palpitations, irregular heart rhythm, edema, swelling of feet/ankles, lightheadedness, pre-syncope, dyspnea on exertion or orthopnea Resp: Denies: dyspnea, productive cough, non-productive cough, wheezing, stridor, pain on inspiration, change in phlegm color, hemoptysis or chest congestion GI: Denies: abdominal pain, nausea, vomiting, hematemesis, coffee ground emesis, dysphagia, heartburn, diarrhea, constipation, GI cramping, change in stool character, hematochezia or melena : Denies: flank pain, difficulty voiding, dysuria, urinary frequency, urinary urgency, urinary hesitancy or hematuria Musc: Denies: neck pain, back pain, extremity pain, joint swelling, joint warmth or deformity Neuro: Denies: headache(s), numbness in extremities, weakness in extremities, sensory changes, difficulty walking, frequent falls, dizziness, vertigo, behavioral changes, Slurred speech present or seizure-like activity Psych: Denies: anxiety, depression, suicidal ideation or homicidal ideation Endo: Denies: polyuria, polydipsia, tired all the time, cold intolerance or hot flashes Clifford/Lymph: Denies: easy bruising or easy bleeding Medications/Allergies Home Medications Medication Instructions Recorded Confirmed Last Taken Type aspirin 325 mg tablet 325 mg PO DAILY 07/20/24 07/20/24 Unknown History multivitamin 1 tab PO DAILY 07/20/24 07/20/24 Unknown History Allergies Allergy/AdvReac Type Severity Reaction Status Date / Time Sulfa (Sulfonamide Allergy ALGY-Rash Verified 07/20/24 05:48 Antibiotics) Additional Medication Information ceftriaxone 07/20- current vancomycin 07/20- current PFSH Acute 2 PFSH: Medical History Alopecia Family history of breast cancer mother Rheumatoid arthritis diagnosis as per available history Psoriasis diagnosis per available history Former smoker Surgical History History of hysterectomy Family History Mother Breast cancer Father Congestive heart failure (CHF) Sister Rheumatoid arthritis Social History Smoking and tobacco/nicotine status: former use of tobacco/nicotine Quit status (tobacco/nicotine): has quit using Year quit tobacco: 2022 Alcohol intake: never Substance/Drug Use: never Household members: spouse and other Details: dog Marital status: Female Reproductive History: : 1 Para: 0 Vitals/I&O/Wt Last Vital Signs Temp 97.7 F 07/28/24 04:00 Pulse 76 07/28/24 06:00 Resp 16 07/28/24 04:00 BP 108/66 07/28/24 04:00 Pulse Ox 97 07/28/24 04:00 O2 Del Method Nasal Cannula 07/27/24 20:00 O2 Flow Rate 3 07/27/24 20:00 FiO2 45 07/23/24 02:34 07/27/24 07/27/24 07/28/24 14:59 22:59 06:59 Intake Total 590 / 590 700 / 1290 250 / 1540 Balance 590 / 590 700 / 1290 250 / 1540 Weight last 48 hrs Weight 43.726 kg Weight 44.65 kg Physical Exam 2 Narrative: General: No acute distress, AO x3 HEENT: PERRLA, pupils bilaterally equal and reactive, pallors not present Chest: Normal vesicular breath sounds, no added sounds, equal good air entry bilaterally CVS: S1-S2 regular, no murmurs, no tachycardia, no gallops, no rubs Abdomen: Soft, nontender, no organomegaly, bowel sounds present Neuro: No focal deficits, no facial deformity, AO x3, power 5/5 in all limbs Midline placed on 07/27 Urinary Catheter Management: Calixto: Cath Placed During This Visit: yes Reason for Continuing Indwelling Catheter: Accurate Measurement of Urinary Output in Critically Ill Patients Urinary Catheter Date of Insertion: 07/23/24 Urinary Catheter Time of Insertion: 01:00 Data 07/28/24 05:40 07/28/24 05:40 Micro: Microbiology 07/24/24 08:45 Gram Stain - Final Sputum - Expectorated Sputum Sputum Culture - Final Kathrine albicans 07/22/24 04:15 Blood Culture - Final Blood NO GROWTH AFTER 5 DAYS 07/22/24 05:40 Blood Culture - Final Blood NO GROWTH AFTER 5 DAYS Other data: NAME: Brittany Roy [facility] #: [id number] LOC: [facility] #: [id number] AGE/SX: 59/F ROOM: 266 R E07/20/[address]: Mily Maurice MD : 1965 BED: 1 D IS: FAX #: STATUS: ADM IN TLOC: Spec #: [id number] Joey: 07/20/24 Status: COMP Req #: [id number] Recd: 07/20/24-[address]: Kale Chopra DO Src: Blood SpDesc: Ordered: Bcult Procedure Result Verified Site Blood Culture Final 07/24/24-160 3 OF 4 BOTTLES POSITIVE DIRECT GRAM STAIN: GRAM POSITIVE COCCI IN PAIRS SENSITIVITIES ON [id number] Organism 1 Streptococcus pneumoniae Growth 3 BOTTLES Gram Stain Charge Charge for Gram Stain Blood Culture Preliminary (changed) 07/21/24-752 NEGATIVE TO DATE Blood Culture Preliminary (changed) 07/20/24-758 SPECIMEN COLLECTED LILLIAN: Brittany Roy LOC: [facility] #: [id number] AGE/SX: 59/F ROOM: [facility] R E07/20/[address]: Mily Maurice MD : 1965 BED: 1 D IS: FAX #: STATUS: ADM IN TLOC: Spec #: [id number] Joey: 07/20/24 Status: COMP Req #: [id number] Recd: 07/20/[address]: Kale Chopra DO Src: Blood SpDesc: Ordered: Bcult Procedure Result Verified Site Blood Culture Final 07/24/24-160 3 OF 4 BOTTLES POSITIVE DIRECT GRAM STAIN: GRAM POSITIVE COCCI IN CHAINS AND SOME IN PAIRS Organism 1 Streptococcus pneumoniae Growth 3 BOTTLES Gram Stain Charge Charge for Gram Stain CRITICAL RESULT YES/NO: YES CRITICAL CALLED BY: SIXTO TO AND READ BACK BY: REHANA DATE: 07/20/24 TIME: 2227 CRITICAL RES YES/NO: YES 2ND CRITICAL CALLED BY: 2ND TO AND READ BACK BY: CHANEL DATE: 07/21/24 2ND CRITICAL TIME: 1040 S pneumoni M.I.C. RX --------- ------ * Amoxicillin/Clavulanate <=0.5/.25 S * Cefepime <=0.25 S * Ceftriaxone <=0.25 S * Cefuroxime <=0.25 S * Clindamycin >0.5 R * Erythromycin >0.5 R * Levofloxacin 1 S * Meropenem <=0.06 S * Penicillin <=0.03 S * Tetracycline <=0.5 S * Trimethoprim/Sulfamethoxazole 11/01 I Vancomycin 0.25 S Blood Culture Preliminary (changed) 07/21/24-1040 3 OF 4 BOTTLES POSITIVE NAME: Brittany Roy LOC: [facility] #: [id number] AGE/SX: 59/F ROOM: [facility] R E07/20/[address]: Mily Maurice MD : 1965 BED: 1 D IS: FAX #: STATUS: ADM IN TLOC: Spec #: [id number] Joey: 07/22/24 Status: COMP Req #: [id number] Recd: 07/22/[address]: Jorge Macario MD Src: Blood SpDesc: Ordered: Bcult Procedure Result Verified Site Blood Culture Final 07/27/24 NO GROWTH AFTER 5 DAYS Blood Culture Preliminary (changed) 07/23/24 NEGATIVE TO DATE Blood Culture Preliminary (changed) 07/22/24 SPECIMEN COLLECTED NAME: Brittany Roy LOC: [facility] U #: [id number] AGE/SX: 59/F ROOM: [facility] R E07/20/[address]: Mily Maurice MD : 1965 BED: 1 D IS: FAX #: STATUS: ADM IN TLOC: Spec #: [id number] Joey: 07/22/24 Status: COMP Req #: [id number] Recd: 07/22/[address]: Jorge Macario MD Src: Blood SpDesc: Ordered: Bcult Procedure Result Verified Site Blood Culture Final 07/27/24 NO GROWTH AFTER 5 DAYS Blood Culture Preliminary (changed) 07/23/24 NEGATIVE TO DATE Blood Culture Preliminary (changed) 07/22/24 SPECIMEN COLLECTED NAME: Brittany Roy LOC: [facility] U #: [id number] AGE/SX: 59/F ROOM: [facility] R E07/20/[address]: Mily Maurice MD : 1965 BED: 1 D IS: FAX #: STATUS: ADM IN TLOC: Spec #: [id number] Joey: 07/24/24 Status: COMP Req #: [id number] Recd: 07/24/[address]: Angelina Dean MD Src: Sputum SpDesc: Expec Sput Ordered: SPU Cult & GS Procedure Result Verified Site Gram Stain Final 07/24/24-1711 Result MODERATE WHITE BLOOD CELLS FEW YEAST Sputum Culture Final 07/27/24-1618 Organism 1 Kathrine albicans Growth MODERATE FEW NORMAL MIRANDA ON DAY 3 Sputum Culture Preliminary (changed) 07/25/24-145 Organism 1 Yeast species Growth MODERATE FEW NORMAL MIRANDA ON DAY 1 RESULTS TO FOLLOW NAME: Brittany Roy LOC: [facility] U #: [id number] AGE/SX: 59/F ROOM: 266 R E07/20/[address]: Mily Maurice MD : 1965 BED: 1 D IS: FAX #: STATUS: ADM IN TLOC: Spec : [id number] Joey: 07/20/24 Status: COMP Req : [id number] Recd: 07/20/[address]: Angelina Dean MD Ordered: MRSA OZH Test Low Normal High Flag Reference Site MRSA OZH MRSA Detected A Not Detecte CRITICAL RESULTS CALLED BY Charity Hernandez AND READ BACK BY REHANA IN ICU @ 1928. A&P Assessment and plan (1) Bacteremia: (2) Streptococcus pneumoniae pneumonia: (3) Hypoxia: (4) Sepsis: Plan 59-year-old lady with clinical course as outlined above admitted to the hospital on July 20, 2024 with septic shock, found to have bilateral pneumonia with blood culture revealing Streptococcus pneumoniae positive. Blood culture negative as of July 22, 2024. Patient has been on treatment with ceftriaxone 2 g IV every 24 hours and IV vancomycin due to MRSA nares positivity between July 20, 2024 to July 28, 2024. She is currently clinically improving. Leukocytosis is resolved. She is afebrile. Oxygen requirements are coming down to 3 L/min. Respiratory cultures with Kathrine albicans likely related to oropharyngeal thrush Plan: Continue ceftriaxone Ceftriaxone 2g iv every 24 hrs for 14 days (07/21-08/03) for strep pneumo pneumonia complicated by bacteremia. Can discontinue IV vancomycin as she has had an empiric 7-day course. No evidence of MRSA on blood or respiratory cultures. Continue supplemental oxygen to be maintained at 92%. PICC line to be removed at end of abx course. Patient is noted to have bilateral small hand joint arthritis versus dactylitis and also swelling of her digits over her toes which she says has been chronic for several months to years. She states she was suspected to have rheumatoid arthritis several years ago. Will check VIDYA panel RA factor and anti-CCP and refer to rheumatology as appropriate. Potentially may have underlying autoimmune condition predisposing her to recurrent pneumonias. She states she has taken pneumonia vaccine in the past. Attestations 2 Medical Necessity Statement*: per admitting Coding Level of Care Code Acute Code for Chg Fwd High MDM includes number and complexity of problems actively addressed during encounter, amount and/or complexity of data reviewed/ordered and described risk of complication, morbidity or mortality of management as documented Diagnoses Bacteremia R78.81 Streptococcus pneumoniae pneumonia J13 Hypoxia R09.02 Sepsis A41.9
[2024-07-28] MEDS: dexamethasone 10 mg/mL INJ 6 MG PO (06:24)
[2024-07-28 06:27] LABS: Anion Gap 8.6 (5-19); Blood Urea Nitrogen 16 mg/dL (6-20); Calcium 7.7 mg/dL (8.5-10.5); Carbon Dioxide 29 mmol/L (22-29); Chloride 106 mmol/L (98-107); Creatinine Clr Calc Pharmacy 109.7209; Glomerular Filtration Rate 164.5 mL/min (90-130); Glucose 100 mg/dL (65-115); Osmolality Calculated 291 mOsm/kg (285-295); Potassium 3.6 mmol/L (3.5-5.1); Sodium 140 mmol/L (136-145)
[2024-07-28 07:39] VITALS: BP 116/65; PULSE 72; RESP 17; TEMP 36.8; O2SAT 93
[2024-07-28] MEDS: multivitamin therapeutic Tablet 1 TAB PO (10:29)
[2024-07-28] MEDS: guaiFENesin 600 mg Tablet PO (10:29)
[2024-07-28] MEDS: acetaminophen 325 mg Tablet 650 MG PO (10:29)
[2024-07-28] MEDS: cefTRIAXone 2,000 mg SDV 2000 MG IVP (10:29)
[2024-07-28] MEDS: pantoprazole 40 mg SDV IVP (10:30)
--- NOTE | 2024-07-28 10:58 | P.DS_ITS ---
Discharge Providers Date of Admission: 07/20/24 15:20 Date of Discharge: July 28, 2024 Attending Provider at Admission: Angelina Dean MD Attending Provider at Discharge: Mily Maurice MD Diagnoses at Discharge Discharge Diagnosis (1) Bacteremia: Status: Resolved (2) Streptococcus pneumoniae pneumonia: Status: Acute (3) Hypoxia: Status: Acute (4) Sepsis: Status: Resolved Permanent problem details: resolved Reason for Visit Reason for Visit: Weakness,SOB Hospital Course Hospital Course 59-year-old lady with clinical course as outlined above admitted to the hospital on July 20, 2024 with septic shock, found to have bilateral pneumonia with blood culture revealing Streptococcus pneumoniae positive. Blood culture negative as of July 22, 2024. Patient has been on treatment with ceftriaxone 2 g IV every 24 hours and IV vancomycin due to MRSA nares positivity between July 20, 2024 to July 28, 2024. She is currently clinically improving. Leukocytosis is resolved. She is afebrile. Oxygen requirements are coming down to 3 L/min. Respiratory cultures with Kathrine albicans likely related to oropharyngeal thrush Patient was evaluated infectious disease and recommended to send home on ceftriaxone 2 g every 24 hours for 14 days total with last dose being 08/03. She did receive IV vancomycin as an empiric 7-day course. 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 Autoimmune workup was ordered. Patient has taken pneumonia vaccine in the past. Patient was discharged home in stable condition. PICC line was placed. She will follow-up with infectious disease patient. Physical Exam Narrative: General: No acute distress, AO x3 HEENT: PERRLA, pupils bilaterally equal and reactive, pallors not present Chest: Normal vesicular breath sounds, no added sounds, equal good air entry bilaterally CVS: S1-S2 regular, no murmurs, no tachycardia, no gallops, no rubs Abdomen: Soft, nontender, no organomegaly, bowel sounds present Neuro: No focal deficits, no facial deformity, AO x3, power 5/5 in all limbs Midline placed on 07/27 Urinary Catheter Management: Calixto: Cath Placed During This Visit: yes Reason for Continuing Indwelling Catheter: Accurate Measurement of Urinary Output in Critically Ill Patients Urinary Catheter Date of Insertion: 07/23/24 Urinary Catheter Time of Insertion: 01:00 Discharge Data Studies Completed and Pending Completed Studies During Hospitalization Category Date Time Status CT angio chest PE protcl [id number] Stat Cat Scan 07/20/24 06:38 Completed XR chest 1V portable [id number] Routine Exams 07/23/24 00:02 Completed XR chest 1V portable [id number] Stat Exams 07/20/24 05:49 Completed XR chest 1V portable [id number] Stat Exams 07/20/24 08:01 Completed XR chest 2V* [id number] Routine Exams 07/26/24 13:06 Completed CV. echo complete* [id number] Routine Ultrasound 07/21/24 06:00 Completed US chest [id number] Routine Ultrasound 07/23/24 01:51 Completed Pending at discharge Category Date Time Status VIDYA Profile Rheumatology Routine Lab 07/28/24 09:52 Ordered CCP [Cyclic Citrullinated Peptide] Routine Lab 07/28/24 09:59 Ordered RA [Rheumatoid Factor] Routine Lab 07/28/24 05:40 Received Uric Acid Stat Lab 07/28/24 05:40 Received Radiology Impressions Chest CTA 07/20/24 06:38 IMPRESSION: 1. Consolidation of the entire right lower lobe with consolidation involving a large portion of the left lower lobe. Findings likely related to pneumonia. 2. Somewhat smaller nodular airspace opacities involving the upper lobes bilaterally. An inflammatory cause is favored. However, recommend follow-up to document resolution 3. Enlarged mediastinal and hilar lymph nodes. Again, findings are most likely reactive. Recommend follow-up to document resolution. Chest Ultrasound 07/23/24 01:51 IMPRESSION: Very small LEFT pleural effusion. There is a large area of consolidation within the pleural effusion. Chest X-Ray 07/26/24 13:06 IMPRESSION: 1. Pulmonary vascular congestion and small bilateral pleural effusions. Superimposed pneumonia in the right lung base would be difficult to exclude proper clinical setting. Laboratory Results WBC 11.33 10^3/uL (3.29-11.43) 07/28/24 05:40 RBC 3.49 10^6/uL (3.85-5.65) L 07/28/24 05:40 Hgb 9.80 g/dL (11.27-16.99) L 07/28/24 05:40 Hct 31.6 % (36-47) L 07/28/24 05:40 MCV 90.5 fl (85-98) 07/28/24 05:40 MCH 28.1 pg (27-33) 07/28/24 05:40 MCHC 31.0 g/dL (30-55) 07/28/24 05:40 RDW 15.3 % (12.1-15.1) H 07/28/24 05:40 Plt Count 461 10^3/cmm (157-399) H 07/28/24 05:40 MPV 10.1 fL (7.4-10.4) 07/28/24 05:40 Neut % (Auto) 75.0 % 07/28/24 05:40 Lymph % (Auto) 15.2 % 07/28/24 05:40 [place] % (Auto) 4.2 % 07/28/24 05:40 Eos % (Auto) 0.6 % 07/28/24 05:40 Baso % (Auto) 0.2 % 07/28/24 05:40 Neut # (Auto) 8.50 10^3/uL (1.8-7.7) H 07/28/24 05:40 Lymph # (Auto) 1.7 10^3/uL (0.8-4.8) 07/28/24 05:40 [place] # (Auto) 0.5 10^3/uL (0.2-0.9) 07/28/24 05:40 Eos # (Auto) 0.1 10^3/uL (0.0-0.8) 07/28/24 05:40 Baso # (Auto) 0.0 10^3/uL (0.0-0.1) 07/28/24 05:40 Nucleated RBC % (auto) 0 % 07/28/24 05:40 Total Counted 100 (0-100) 07/27/24 04:46 Atypical Lymphs % 0.0 % (0-5) 07/27/24 04:46 Absolute Neutrophils 8.8 10^3/cmm (1.4-6.5) H 07/27/24 04:46 Segmented Neutrophils 66 % 07/27/24 04:46 Band Neutrophils 6.0 % 07/27/24 04:46 Absolute Lymphocytes 2.6 10^3/cmm (1.2-3.4) 07/27/24 04:46 Lymphocytes (Manual) 21 % 07/27/24 04:46 Monocytes (Manual) 2.0 % 07/27/24 04:46 Absolute Monocytes 0.2 10^3/cmm (0.1-0.6) 07/27/24 04:46 Eosinophils (Manual) 1 % 07/27/24 04:46 Absolute Eosinophils 0.1 10^3/cmm (0.0-0.7) 07/27/24 04:46 Basophils (Manual) 0.0 % 07/27/24 04:46 Absolute Basophils 0.0 10^3/cmm (0.0-0.2) 07/27/24 04:46 Metamyelocytes 3.0 % 07/27/24 04:46 Myelocytes 1.0 % 07/27/24 04:46 Nucleated RBCs 1.0 /100WBC (0-1) 07/27/24 04:46 Nucleated RBCs # 0.0 /100WBC 07/28/24 05:40 Platelet Estimate Increased (Normal) H 07/27/24 04:46 PT 15.70 SECONDS (12.1-14.9) H 07/21/24 04:54 INR 1.21 (0.8-1.2) H 07/21/24 04:54 APTT 29.2 SECONDS (23.9-36.7) 07/21/24 04:54 Specimen Type Arterial 07/20/24 05:52 Sample Site Radial, right 07/20/24 05:52 ABG pH 7.46 (7.35-7.45) H 07/20/24 05:52 ABG pCO2 35.1 mmHg (35-45) 07/20/24 05:52 ABG pO2 54.0 mmHg (80.0-100.0) L 07/20/24 05:52 ABG HCO3 24.9 mmol/L (22-26) 07/20/24 05:52 ABG O2 Saturation 89.3 07/20/24 05:52 ABG Base Excess 1.3 mmol/L (-2.0-2.0) 07/20/24 05:52 Michael Test Pos 07/20/24 05:52 A-a O2 Gradient 6.9 mmHg (5-10) 07/20/24 05:52 Hematocrit 40.3 % (37-47) 07/20/24 05:52 Hgb O2 Saturation 87.4 % (95-100) L 07/20/24 05:52 Carboxyhemoglobin 1.2 %THgb (0.4-20.1) 07/20/24 05:52 Methemoglobin 0.9 % (0.4-1.5) 07/20/24 05:52 Total Hemoglobin 13.2 g/dL (12-16) 07/20/24 05:52 Sodium 131.0 mmol/L (131-143) 07/20/24 05:52 Potassium 3.6 mmol/L (3.5-5.0) 07/20/24 05:52 Glucose 108.0 mg/dL (70-115) 07/20/24 05:52 Ionized Calcium 1.1 mmol/L (1.1-1.4) 07/20/24 05:52 O2 Delivery Device Nc 07/20/24 05:52 O2 Liters/Min 6.0 % 07/20/24 05:52 Lining Baster ID [email or web address] 07/20/24 05:52 Sodium 140 mmol/L (136-145) 07/28/24 05:40 Potassium 3.6 mmol/L (3.5-5.1) 07/28/24 05:40 Chloride 106 mmol/L (98-107) 07/28/24 05:40 Carbon Dioxide 29 mmol/L (22-29) 07/28/24 05:40 Anion Gap 8.6 (5-19) 07/28/24 05:40 BUN 16 mg/dL (6-20) 07/28/24 05:40 Creatinine 0.4 mg/dL (0.5-0.9) L 07/28/24 05:40 GFR Calculation 164.5 mL/min (90-130) H 07/28/24 05:40 Glucose 100 mg/dL (65-115) 07/28/24 05:40 Calculated Osmolality 291 mOsm/kg (285-295) 07/28/24 05:40 Lactic Acid 2.9 mmol/L (0.5-2.2) H 07/20/24 07:16 Lactic Acid (Sepsis) 2.1 mmol/L (0.5-2.2) 07/20/24 09:55 Calcium 7.7 mg/dL (8.5-10.5) L 07/28/24 05:40 Magnesium 1.5 mg/dL (1.7-2.3) L 07/26/24 04:14 Iron 11 ug/dL (37-145) L 07/21/24 04:54 TIBC 96 mcg/dl 07/21/24 04:54 % Saturation 11.4 % (20-50) L 07/21/24 04:54 Unsat Iron Binding 85 ug/dL (112-347) L 07/21/24 04:54 Total Bilirubin 0.3 mg/dL (0.15-1.2) 07/24/24 04:25 AST 20 U/L (0-32) 07/24/24 04:25 ALT 14 U/L (0-33) 07/24/24 04:25 Alkaline Phosphatase 104 U/L (35-105) 07/24/24 04:25 Troponin T Baseline 8 ng/L (0-10) 07/20/24 07:16 Troponin T 120 Minute 6.00 ng/L (0-10) 07/20/24 09:55 Delta Troponin T -2.00 ABS# (0-10) L 07/20/24 09:55 Troponin T Hi Sens 6Hr 6.00 ng/L (0-10) 07/20/24 12:49 Troponin T Hi Sens 6Hr Delta -2.00 ng/L (0-12) L 07/20/24 12:49 NT-Pro-B Natriuret Pep 2712 pg/mL (0-125) H 07/20/24 07:16 Total Protein 4.9 g/dL (6.6-8.7) L 07/24/24 04:25 Albumin 1.8 g/dL (3.5-5.2) L 07/24/24 04:25 Globulin 3.1 g/dL (1.3-4.6) 07/24/24 04:25 TSH 0.52 uIU/mL (0.27-4.20) 07/21/24 04:54 Random Cortisol 18.19 ug/dL (2.47-19.5) 07/21/24 04:54 Urine Color Dark yellow (Yellow) A 07/20/24 17:30 Urine Appearance Clear (CLEAR) 07/20/24 17:30 Urine pH 6.0 (5-7) 07/20/24 17:30 Ur Specific [place] 1.041 (1.005-1.030) H 07/20/24 17:30 Urine Protein 2+ (Negative) A 07/20/24 17:30 Urine Glucose (UA) Negative (Normal) 07/20/24 17:30 Urine Ketones Negative (Negative) 07/20/24 17:30 Urine Blood 3+ (Negative) A 07/20/24 17:30 Urine Nitrate Negative (Negative) 07/20/24 17:30 Urine Bilirubin 1+ (Negative) H 07/20/24 17:30 Urine Urobilinogen 2.0 mg/dL (Negative) H 07/20/24 17:30 Ur Leukocyte Esterase Negative (Negative) 07/20/24 17:30 Urine RBC 11-20 /hpf (0-2) H 07/20/24 17:30 Urine WBC 0-5 /hpf (0-5) 07/20/24 17:30 Ur Squamous Epith Cells 0-5 /hpf (0-5) 07/20/24 17:30 Amorphous Sediment Not Reportable 07/20/24 17:30 Urine Bacteria None seen /hpf (NONE) 07/20/24 17:30 Hyaline Casts 4.11 /lpf 07/20/24 17:30 Nasal MRSA (PCR) Mrsa detected (Not Detecte) A 07/20/24 17:15 Vancomycin Trough 16.8 ug/mL (10-15) H 07/26/24 08:57 Coronavirus (PCR) Negative (Negative) 07/20/24 17:15 HIV 1&2 Ab & HIV 1 Ag Non-reactive (Non-Reactiv) 07/21/24 04:54 HIV 1&2 Antibody Non-reactive (Non-Reactiv) 07/21/24 04:54 Influenza A (PCR) Negative (Negative) 07/20/24 17:15 Influenza Type B (PCR) Negative (Negative) 07/20/24 17:15 RSV (PCR) Negative (Negative) 07/20/24 17:15 Vitals Last Vital Signs Temp 98.2 F 07/28/24 07:39 Pulse 72 07/28/24 07:39 Resp 17 07/28/24 07:39 BP 116/65 07/28/24 07:39 Pulse Ox 93 07/28/24 07:39 O2 Del Method Nasal Cannula 07/28/24 07:39 O2 Flow Rate 3 07/27/24 20:00 FiO2 45 07/23/24 02:34 Discharge Plan Discharge Patient Disposition: Home Condition: Stable Prescriptions: Continued multivitamin Tablet 1 tab PO DAILY aspirin 325 mg Tablet 325 mg PO DAILY Discharge Orders: Discharge Order (Routine); Ordered 07/28/24 Ordered By: Mily Maurice Other Ambulatory Orders: DME: Oxygen (Order) Location: None Selected Ordered By: Mily Maurice DME: Walker (Order) Location: None Selected Ordered By: Mily Maurice Miscellaneous Procedure (Order) Location: None Selected Ordered By: Mily Maurice Referrals: rey mason MD [Other] - 4-7 days (We have notified your physician's clinic of the need for a follow-up appointment to be scheduled. If you have not heard from them within the next 2 business days, please call them directly. We have notified your physician's clinic of the need for a follow-up appointment to be scheduled. If you have not heard from them within the next 2 business days, please call them directly. ) [facility] [Provider Group] (Follow up with ID prn. referral generated to provide office information. Please arrange follow up with PCP NEEDED) [facility] [Outside] [facility] [Outside] [facility] Infusion Center [Outside] - 08/03/24 9:00 am (You will need to follow up with the Infusion Center here at [facility] on Friday 08/03 to have your PICC removed. ) Nicki Lopez FNP [Nurse Practitioner] - 08/03/24 1:00 pm Bruce Hurley MD [Physician] - (B/L hand dactylitis vs small joint arthritis We have notified your physician's clinic of the need for a follow-up appointment to be scheduled. If you have not heard from them within the next 2 business days, please call them directly. ) Discharge Diet: Regular Discharge Activity: Resume usual activity and Oxygen as instructed Patient Instructions: Sepsis (GEN), Pneumonia (GEN), Bacteremia (GEN), Opioid Safety, Pneumonia Stoplight Activity Restrictions/Additional Instructions: Please continue IV antibiotics as directed. Be sure to follow-up with pulmonology and rheumatology. Discharge Attestations Time Spent in Discharge Care*: greater than 30 min Quality Metrics Clinical Quality Measures [ No reported AMI, CVA or VTE this stay] Coding Level of Care Code Acute Code for Chg Fwd Diagnoses Bacteremia R78.81 Streptococcus pneumoniae pneumonia J13 Hypoxia R09.02 Sepsis A41.9
[2024-07-28 11:11] LABS: Uric Acid 2.6 mg/dL (2.4-5.7)
[2024-07-29 14:31] LABS: COMPLEMENT, TOTAL (CH50) 58 U/mL (31-60)
[2024-07-29 15:05] LABS: Cyclic Citrullinated Peptide <16 UNITS
[2024-07-29 17:30] LABS: COMPLEMENT COMPONENT C3C 144 mg/dL (83-193); COMPLEMENT COMPONENT C4C 34 mg/dL (15-57)
[2024-07-30 12:44] LABS: CENTROMERE B ANTIBODY <1.0 NEG AI (<1.0 NEG); JO-1 ANTIBODY <1.0 NEG AI (<1.0 NEG); RNP ANTIBODY <1.0 NEG AI (<1.0 NEG); SCL-70 ANTIBODY <1.0 NEG AI (<1.0 NEG); SJOGREN'S ANTIBODY (SS-A) <1.0 NEG AI (<1.0 NEG); SM ANTIBODY <1.0 NEG AI (<1.0 NEG); SS-B <1.0 NEG AI (<1.0 NEG)
[2024-07-30 15:10] LABS: ANA SCREEN, IFA NEGATIVE (NEGATIVE)
== END 2024-07-28 15:42 | disposition home or self-care (01) | DRG 871 ==
LOC: ER 06:24 → ICU 15:20 → MEDSURG 07-25 17:16
PROVIDERS: Emergency Medicine; Internal Medicine; Student in an Organized Health Care Education/Training Program; Admitting Provider Hospitalist; Emergency Provider Family Medicine; Visit Provider Internal Medicine
DX: A41.9 Sepsis, unspecified organism (principal); E43 Unspecified severe protein-calorie malnutrition; J13 Pneumonia due to Streptococcus pneumoniae; E87.20 Acidosis, unspecified; Z68.1 Body mass index [BMI] 19.9 or less, adult; B37.0 Candidal stomatitis; R65.20 Severe sepsis without septic shock; L65.9 Nonscarring hair loss, unspecified; M06.9 Rheumatoid arthritis, unspecified; L40.9 Psoriasis, unspecified; E61.1 Iron deficiency; Z79.82 Long term (current) use of aspirin; Z87.01 Personal history of pneumonia (recurrent); Z99.81 Dependence on supplemental oxygen; Z87.891 Personal history of nicotine dependence
CPT/HCPCS: 0241U; 36415; 36569; 36592; 36600; 51702; 71045; 71046; 71275; 76604; 80048; 80051; 80053; 80202; 81001; 82330; 82533; 82805; 83540; 83550; 83605; 83735; 83880; 84443; 84484; 84550; 85007; 85025; 85610; 85730; 86160; 86162; 86200; 86235; 86255; 86376; 86403; 86431; 87040; 87070; 87086; 87106; 87150; 87186; 87205; 87449; 87806; 92523; 92610; 93005; 93306; 94640; 94669; 94760; 96365; 96366; 96367; 96372; 96374; 96375; 96376; 97110; 97116; 97162; 97530; 99285; C1751; J0456; J0696; J1100; J1642; J1644; J1756; J1940; J2270; J2405; J2470; J2765; J2919; J3370; J3475; J3480; J7030; J7050

== ENCOUNTER 2024-08-03 10:40 | Oncology outpatient (recurring) (ONCR) | payer MEDICAID, SELFPAY ==
[2024-08-03 11:19] LABS: Basophils % 0.6 %; Eosinophils # 0.1 10^3/uL (0.0-0.8); Eosinophils % 0.9 %; Hematocrit 34.1 % (36-47); Lymphocytes # 1.1 10^3/uL (0.8-4.8); Lymphocytes % 19.5 %; Mean Corpuscular HGB Conc 31.4 g/dL (30-55); Mean Corpuscular Hemoglobin 28.6 pg (27-33); Mean Corpuscular Volume 91.2 fl (85-98); Mean Platelet Volume 9.5 fL (7.4-10.4); Monocytes # 0.5 10^3/uL (0.2-0.9); Monocytes % 9.2 %; Neutrophils # 3.78 10^3/uL (1.8-7.7); Neutrophils % 69.6 %; Nucleated Red Blood Cells % 0 %; Platelet Count 436 10^3/cmm (157-399); Red Blood Count 3.74 10^6/uL (3.85-5.65); Red Cell Distribution Width 16.2 % (12.1-15.1); White Blood Count 5.43 10^3/uL (3.29-11.43)
[2024-08-03 11:37] LABS: Blood Urea Nitrogen 20 mg/dL (6-20); Calcium 8.4 mg/dL (8.5-10.5); Carbon Dioxide 25 mmol/L (22-29); Chloride 100 mmol/L (98-107); Glomerular Filtration Rate 127.2 mL/min (90-130); Glucose 104 mg/dL (65-115); Osmolality Calculated 283 mOsm/kg (285-295); Sodium 135 mmol/L (136-145)
[2024-08-03 11:45] LABS: Anion Gap 13.9 (5-19); Potassium 3.9 mmol/L (3.5-5.1)
== END 2024-08-13 23:59 | disposition home or self-care (01) ==
LOC: ONCMED 10:44
PROVIDERS: Visit Provider Student in an Organized Health Care Education/Training Program
DX: R78.81 Bacteremia (principal)
CPT/HCPCS: 36592; 80048; 80053; 85025